=== PATIENT | male | born 1950 | race Caucasian/White ===

== ENCOUNTER 2017-08-05 14:31 | Emergency (ER) | payer OTHER, SELFPAY ==
[~2017-08-05] VITALS: Ht 175.3 cm; Wt 113.4 kg
[~2017-08-05 14:31] MED LIST: ACET325 PO; ALBU90OI INH; ALUMAG30SU PO; AMLO10 PO; AMLO5 PO; ASPI325 PO; ASPI81CH PO; ASPI81EC PO; Atrovent Inha12.9 GM INH; BLOOD PRESSURE MED; CHOLESTEROL MED; COLCRYS0.6 MG PO; DOXA1; DOXA2 PO; FISH1000 PO; FURO40 PO; HYDACE5 PO; HYDACE5325 PO; HYDMOR2 PO; HYDR1TAB94 PO; IBUP800 PO; INDO50 PO; ISOMON30 PO; KETO10 PO; LISI20; LISI20 PO; LISI5 PO; LOPE2C PO; LOSA25 PO; LOVA40 PO; METO100 PO; METO100ER PO; METO25ER PO; METO50 PO; METR500 PO; NAPR550 PO; Norco 5-325 Ta1 EACH PO; OLME40 PO; OMEG1CAP30 PO; OXYACE5T PO; PANT40 PO; POTCHL10ER PO; PRED10 PO; PROM25 PO; Percocet 5-3251 EACH PO; Prednisone50 MG PO; RANI150 PO; Ranitidine HCl150 M1 PO; SPIHYD PO; TOCO1000 PO; VERA240ERB; Zithromax250 MG PO
[2017-08-05 15:13] LABS: BASOPHILS PERCENT AUTO 0 % (0-2); EOSINOPHILS ABSOLUTE AUTO 0.03 K/mm3 (0.00-0.68); EOSINOPHILS PERCENT AUTO 0 % (0-6); Hematocrit 42.8 % (37.0-53.0); Hemoglobin 13.4 g/dL (13.5-17.5); IMMATURE GRAN ABSOLUTE AUTO 0.04 K/mm3 (0.00-0.10); IMMATURE GRAN PERCENT AUTO 1 % (0-1); LYMPHOCYTES ABSOLUTE AUTO 0.47 K/mm3 (0.84-5.20); LYMPHOCYTES PERCENT AUTO 6 % (21-46); MONOCYTES ABSOLUTE AUTO 0.53 K/mm3 (0.16-1.47); MONOCYTES PERCENT AUTO 7 % (4-13); Mean Corpuscular HGB 30.6 pg (26.0-34.0); Mean Corpuscular HGB Conc 31.3 g/dL (31.5-36.5); Mean Corpuscular Volume 98 fL (80-100); Mean Platelet Volume 8.9 fL (9.1-12.4); NEUTROPHILS ABSOLUTE AUTO 7.09 K/mm3 (1.96-9.15); NEUTROPHILS PERCENT AUTO 87 % (41-73); Platelet Count 193 K/mm3 (150-400); RDW Coefficient Variation 15.8 % (11.7-14.2); RDW Standard Deviation 56.3 fL (35.1-46.3); Red Blood Cell Count 4.38 M/mm3 (4.30-5.90); White Blood Cell Count 8.16 K/mm3 (4.00-11.30)
[2017-08-05 15:39] LABS: Alanine Aminotransfer (ALT/SGP 44 U/L (12-78); Albumin, Blood 2.8 g/dL (3.4-5.0); Albumin/Globulin Ratio 0.8 (0.8-1.8); Alk Phos 74 U/L (50-136); Anion Gap 5 mmol/L (6-16); Aspartate Aminotrans (AST/SGOT 38 U/L (12-37); Bilirubin, Total 0.3 mg/dL (0.1-1.0); Blood Urea Nitrogen 16 mg/dL (8-24); Bun/Creatinine Ratio 16.2 (12.0-20.0); CO2, Blood 34 mmol/L (21-32); Calcium, Blood 8.4 mg/dL (8.5-10.1); Chloride, Blood 97 mmol/L (98-108); Creatinine, Blood 0.99 mg/dL (0.60-1.20); Globulin, Blood 3.6 g/dL (2.2-4.0); Glomerular Filtration Rate >60 (60-); Glucose, Blood 107 mg/dL (70-99); Potassium, Blood 4.3 mmol/L (3.5-5.5); Sodium, Blood 136 mmol/L (136-145); Total Protein, Blood 6.4 g/dL (6.4-8.2); Troponin I 0.017 ng/mL (0.000-0.040)
[2017-08-05] MEDS ORDERED: LEVFLO500 PO (16:05)
[2017-08-05] MEDS ORDERED: ALBU90OI INH (16:05)
== END 2017-08-05 16:15 | disposition home or self-care (01) ==
LOC: ER 14:31
PROVIDERS: Physician Assistant
DX: J44.1 Chronic obstructive pulmonary disease with (acute) exacerbation (principal); I10 Essential (primary) hypertension; E78.00 Pure hypercholesterolemia, unspecified; F17.200 Nicotine dependence, unspecified, uncomplicated; Z88.8 Allergy status to other drugs, medicaments and biological substances; Z79.899 Other long term (current) drug therapy; Z79.82 Long term (current) use of aspirin; Z96.641 Presence of right artificial hip joint
CPT/HCPCS: 71020; 80053; 83880; 84484; 85025; 93005; 93010; 99283

== ENCOUNTER 2017-08-06 12:50 | Inpatient (IN) | payer OTHER, SELFPAY ==
[~2017-08-06] VITALS: Ht 175.3 cm; Wt 116.9 kg
[~2017-08-06 12:50] MED LIST changes: +LEVFLO500 PO
[2017-08-06 13:45] LABS: BASOPHILS ABSOLUTE AUTO 0.01 K/mm3 (0.00-0.23); BASOPHILS PERCENT AUTO 0 % (0-2); EOSINOPHILS ABSOLUTE AUTO 0.04 K/mm3 (0.00-0.68); EOSINOPHILS PERCENT AUTO 1 % (0-6); Hematocrit 42.1 % (37.0-53.0); Hemoglobin 13.3 g/dL (13.5-17.5); IMMATURE GRAN ABSOLUTE AUTO 0.04 K/mm3 (0.00-0.10); IMMATURE GRAN PERCENT AUTO 1 % (0-1); LYMPHOCYTES ABSOLUTE AUTO 0.78 K/mm3 (0.84-5.20); LYMPHOCYTES PERCENT AUTO 12 % (21-46); MONOCYTES ABSOLUTE AUTO 0.51 K/mm3 (0.16-1.47); MONOCYTES PERCENT AUTO 8 % (4-13); Mean Corpuscular HGB Conc 31.6 g/dL (31.5-36.5); Mean Corpuscular Volume 98 fL (80-100); NEUTROPHILS ABSOLUTE AUTO 5.27 K/mm3 (1.96-9.15); NEUTROPHILS PERCENT AUTO 79 % (41-73); Platelet Count 172 K/mm3 (150-400); RDW Coefficient Variation 16.1 % (11.7-14.2); RDW Standard Deviation 57.9 fL (35.1-46.3); Red Blood Cell Count 4.29 M/mm3 (4.30-5.90); White Blood Cell Count 6.65 K/mm3 (4.00-11.30)
[2017-08-06 14:06] LABS: Alanine Aminotransfer (ALT/SGP 38 U/L (12-78); Albumin, Blood 2.7 g/dL (3.4-5.0); Albumin/Globulin Ratio 0.7 (0.8-1.8); Alk Phos 69 U/L (50-136); Anion Gap 4 mmol/L (6-16); Aspartate Aminotrans (AST/SGOT 34 U/L (12-37); Bilirubin, Total 0.2 mg/dL (0.1-1.0); Blood Urea Nitrogen 10 mg/dL (8-24); Bun/Creatinine Ratio 12.6 (12.0-20.0); CO2, Blood 34 mmol/L (21-32); Calcium, Blood 8.4 mg/dL (8.5-10.1); Chloride, Blood 97 mmol/L (98-108); Creatinine, Blood 0.79 mg/dL (0.60-1.20); Globulin, Blood 3.8 g/dL (2.2-4.0); Glomerular Filtration Rate >60 (60-); Glucose, Blood 92 mg/dL (70-99); Sodium, Blood 135 mmol/L (136-145); Total Protein, Blood 6.5 g/dL (6.4-8.2); Troponin I 0.029 ng/mL (0.000-0.040)
[2017-08-07 04:48] LABS: Hematocrit 41.9 % (37.0-53.0); Mean Corpuscular HGB 30.3 pg (26.0-34.0); Mean Corpuscular Volume 98 fL (80-100); Mean Platelet Volume 9.4 fL (9.1-12.4); Platelet Count 178 K/mm3 (150-400); RDW Coefficient Variation 16.2 % (11.7-14.2); RDW Standard Deviation 57.5 fL (35.1-46.3); Red Blood Cell Count 4.29 M/mm3 (4.30-5.90); White Blood Cell Count 6.67 K/mm3 (4.00-11.30)
[2017-08-07 05:15] LABS: Alanine Aminotransfer (ALT/SGP 39 U/L (12-78); Albumin, Blood 2.7 g/dL (3.4-5.0); Albumin/Globulin Ratio 0.7 (0.8-1.8); Alk Phos 75 U/L (50-136); Anion Gap 7 mmol/L (6-16); Aspartate Aminotrans (AST/SGOT 29 U/L (12-37); Bilirubin, Total 0.2 mg/dL (0.1-1.0); Blood Urea Nitrogen 18 mg/dL (8-24); CO2, Blood 31 mmol/L (21-32); Calcium, Blood 8.3 mg/dL (8.5-10.1); Chloride, Blood 98 mmol/L (98-108); Globulin, Blood 3.9 g/dL (2.2-4.0); Glomerular Filtration Rate >60 (60-); Glucose, Blood 135 mg/dL (70-99); Potassium, Blood 4.2 mmol/L (3.5-5.5); Sodium, Blood 136 mmol/L (136-145); Total Protein, Blood 6.6 g/dL (6.4-8.2)
[2017-08-07 05:20] LABS: BAND PERCENT MAN 12 % (0-8); BASOPHILS PERCENT MAN 0 % (0-2); EOSINOPHILS PERCENT MAN 0 % (0-6); LYMPHOCYTES ABSOLUTE MAN 0.13 K/mm3 (0.84-5.20); LYMPHOCYTES PERCENT MAN 2 % (21-46); MONOCYTES ABSOLUTE MAN 0.13 K/mm3 (0.16-1.47); MONOCYTES PERCENT MAN 2 % (4-13); SEG NEUTROPHILS PERCENT MAN 84 % (41-73); TOTAL CELLS COUNTED 100
[2017-08-09 05:07] LABS: Hematocrit 42.4 % (37.0-53.0); Hemoglobin 13.2 g/dL (13.5-17.5); Mean Corpuscular HGB 30.6 pg (26.0-34.0); Mean Corpuscular HGB Conc 31.1 g/dL (31.5-36.5); Mean Corpuscular Volume 98 fL (80-100); Mean Platelet Volume 9.3 fL (9.1-12.4); Platelet Count 208 K/mm3 (150-400); RDW Standard Deviation 57.3 fL (35.1-46.3); Red Blood Cell Count 4.32 M/mm3 (4.30-5.90); White Blood Cell Count 12.02 K/mm3 (4.00-11.30)
[2017-08-09 05:26] LABS: Anion Gap 8 mmol/L (6-16); Blood Urea Nitrogen 16 mg/dL (8-24); Bun/Creatinine Ratio 19.3 (12.0-20.0); CO2, Blood 33 mmol/L (21-32); Calcium, Blood 8.4 mg/dL (8.5-10.1); Chloride, Blood 96 mmol/L (98-108); Creatinine, Blood 0.83 mg/dL (0.60-1.20); Glomerular Filtration Rate >60 (60-); Glucose, Blood 137 mg/dL (70-99); Sodium, Blood 137 mmol/L (136-145)
[2017-08-09] MEDS ORDERED: ASPI81CH PO (15:00)
[2017-08-09] MEDS ORDERED: BUDE.5 INH (15:00)
[2017-08-09] MEDS ORDERED: ALBU3IS INH (15:01)
[2017-08-09] MEDS ORDERED: DOXY100 PO (15:02)
[2017-08-09] MEDS ORDERED: FURO40 PO (15:03)
[2017-08-09] MEDS ORDERED: PRED20 PO (15:03)
[2017-08-09] MEDS ORDERED: SPIR25 PO (15:03)
== END 2017-08-09 17:20 | disposition home health service (06) | DRG 189 ==
LOC: ER 12:50 → MEDS 15:22 → ENPENDDIS 08-09 14:40 → MEDS 08-09 17:20
PROVIDERS: Internal Medicine
DX: J96.01 Acute respiratory failure with hypoxia (principal); J44.0 Chronic obstructive pulmonary disease with (acute) lower respiratory infection; G47.33 Obstructive sleep apnea (adult) (pediatric); I10 Essential (primary) hypertension; J20.9 Acute bronchitis, unspecified; F17.200 Nicotine dependence, unspecified, uncomplicated; E78.5 Hyperlipidemia, unspecified; Z88.8 Allergy status to other drugs, medicaments and biological substances; Z79.82 Long term (current) use of aspirin; Z79.899 Other long term (current) drug therapy; Z71.6 Tobacco abuse counseling
CPT/HCPCS: 36415; 71020; 80048; 80053; 83880; 84484; 85025; 85027; 93005; 93010; 94010; 94640; 94644; 94664; 94667; 94760; 94761; 96361; 96365; 96375; 98960; 99285; 99407; J0696; J1650; J1940; J2920; J2930; J7030

== ENCOUNTER 2017-08-19 10:53 | Inpatient (IN) | payer OTHER, SELFPAY ==
[~2017-08-19] VITALS: Ht 175.3 cm; Wt 118.9 kg
[~2017-08-19 10:53] MED LIST changes: +ALBU3IS INH; +BUDE.5 INH; +DOXY100 PO; +PRED20 PO; +SPIR25 PO
[2017-08-19 13:01] LABS: BASOPHILS ABSOLUTE AUTO 0.01 K/mm3 (0.00-0.23); BASOPHILS PERCENT AUTO 0 % (0-2); EOSINOPHILS ABSOLUTE AUTO 0.06 K/mm3 (0.00-0.68); EOSINOPHILS PERCENT AUTO 1 % (0-6); Hematocrit 42.6 % (37.0-53.0); Hemoglobin 13.5 g/dL (13.5-17.5); IMMATURE GRAN ABSOLUTE AUTO 0.08 K/mm3 (0.00-0.10); IMMATURE GRAN PERCENT AUTO 1 % (0-1); LYMPHOCYTES ABSOLUTE AUTO 1.52 K/mm3 (0.84-5.20); LYMPHOCYTES PERCENT AUTO 14 % (21-46); MONOCYTES ABSOLUTE AUTO 0.69 K/mm3 (0.16-1.47); MONOCYTES PERCENT AUTO 6 % (4-13); Mean Corpuscular HGB 30.5 pg (26.0-34.0); Mean Corpuscular HGB Conc 31.7 g/dL (31.5-36.5); Mean Corpuscular Volume 96 fL (80-100); Mean Platelet Volume 9.4 fL (9.1-12.4); NEUTROPHILS ABSOLUTE AUTO 8.91 K/mm3 (1.96-9.15); NEUTROPHILS PERCENT AUTO 79 % (41-73); Platelet Count 223 K/mm3 (150-400); RDW Coefficient Variation 15.8 % (11.7-14.2); RDW Standard Deviation 55.3 fL (35.1-46.3); Red Blood Cell Count 4.42 M/mm3 (4.30-5.90); White Blood Cell Count 11.27 K/mm3 (4.00-11.30)
[2017-08-19 13:19] LABS: Alanine Aminotransfer (ALT/SGP 61 U/L (12-78); Albumin, Blood 2.9 g/dL (3.4-5.0); Albumin/Globulin Ratio 0.8 (0.8-1.8); Alk Phos 83 U/L (50-136); Anion Gap 9 mmol/L (6-16); Aspartate Aminotrans (AST/SGOT 76 U/L (12-37); Bilirubin, Total 0.6 mg/dL (0.1-1.0); Blood Urea Nitrogen 15 mg/dL (8-24); Bun/Creatinine Ratio 16.3 (12.0-20.0); CO2, Blood 31 mmol/L (21-32); Calcium, Blood 8.6 mg/dL (8.5-10.1); Chloride, Blood 86 mmol/L (98-108); Creatinine, Blood 0.92 mg/dL (0.60-1.20); Globulin, Blood 3.7 g/dL (2.2-4.0); Glomerular Filtration Rate >60 (60-); Glucose, Blood 88 mg/dL (70-99); Sodium, Blood 126 mmol/L (136-145); Total Protein, Blood 6.6 g/dL (6.4-8.2); Troponin I <0.015 ng/mL (0.000-0.040)
[2017-08-19 14:05] LABS: PO2 Arterial 58.9 mmHg (80-100); pH Blood Arterial 7.39 (7.35-7.45)
[2017-08-19 21:43] LABS: CPK Creatine Kinase 401 U/L (39-308); Creatine Kinase MB 10.9 ng/mL (0.0-3.6); Creatine Kinase MB Index 2.7 (0.0-4.0); Troponin I <0.015 ng/mL (0.000-0.040)
[2017-08-20 05:53] LABS: Hematocrit 39.8 % (37.0-53.0); Hemoglobin 12.5 g/dL (13.5-17.5); Mean Corpuscular HGB 30.6 pg (26.0-34.0); Mean Corpuscular HGB Conc 31.4 g/dL (31.5-36.5); Mean Corpuscular Volume 97 fL (80-100); Mean Platelet Volume 9.4 fL (9.1-12.4); Platelet Count 242 K/mm3 (150-400); RDW Coefficient Variation 16.3 % (11.7-14.2); RDW Standard Deviation 57.5 fL (35.1-46.3); Red Blood Cell Count 4.09 M/mm3 (4.30-5.90); White Blood Cell Count 10.13 K/mm3 (4.00-11.30)
[2017-08-20 06:27] LABS: Albumin, Blood 2.7 g/dL (3.4-5.0); Anion Gap 8 mmol/L (6-16); Blood Urea Nitrogen 20 mg/dL (8-24); Bun/Creatinine Ratio 19.8 (12.0-20.0); CO2, Blood 32 mmol/L (21-32); CPK Creatine Kinase 347 U/L (39-308); Calcium, Blood 8.3 mg/dL (8.5-10.1); Chloride, Blood 91 mmol/L (98-108); Creatine Kinase MB 9.1 ng/mL (0.0-3.6); Creatine Kinase MB Index 2.6 (0.0-4.0); Creatinine, Blood 1.01 mg/dL (0.60-1.20); Glomerular Filtration Rate >60 (60-); Glucose, Blood 145 mg/dL (70-99); Magnesium, Blood 2.2 mg/dL (1.6-2.4); Phosphorus, Blood 3.7 mg/dL (2.5-4.9); Potassium, Blood 4.5 mmol/L (3.5-5.5); Sodium, Blood 131 mmol/L (136-145); Troponin I <0.015 ng/mL (0.000-0.040)
[2017-08-21 04:51] LABS: Anion Gap 6 mmol/L (6-16); Blood Urea Nitrogen 29 mg/dL (8-24); Bun/Creatinine Ratio 24.2 (12.0-20.0); CO2, Blood 32 mmol/L (21-32); Calcium, Blood 8.1 mg/dL (8.5-10.1); Chloride, Blood 92 mmol/L (98-108); Glomerular Filtration Rate >60 (60-); Glucose, Blood 118 mg/dL (70-99); Magnesium, Blood 2.1 mg/dL (1.6-2.4); Potassium, Blood 4.8 mmol/L (3.5-5.5); Sodium, Blood 130 mmol/L (136-145)
== END 2017-08-21 18:00 | disposition left against medical advice (07) | DRG 291 ==
LOC: ER 10:53 → ERHOLD 16:56 → PCU 20:38
PROVIDERS: Emergency Medicine; Hospitalist; Internal Medicine; Physician Assistant
DX: I11.0 Hypertensive heart disease with heart failure (principal); J96.01 Acute respiratory failure with hypoxia; I47.2 Ventricular tachycardia; J44.1 Chronic obstructive pulmonary disease with (acute) exacerbation; J44.0 Chronic obstructive pulmonary disease with (acute) lower respiratory infection; E87.1 Hypo-osmolality and hyponatremia; J20.9 Acute bronchitis, unspecified; I50.31 Acute diastolic (congestive) heart failure; G47.33 Obstructive sleep apnea (adult) (pediatric); Z96.641 Presence of right artificial hip joint; F17.210 Nicotine dependence, cigarettes, uncomplicated; E78.5 Hyperlipidemia, unspecified; Z99.2 Dependence on renal dialysis; Z79.82 Long term (current) use of aspirin
CPT/HCPCS: 36415; 36600; 71045; 71046; 71260; 80048; 80053; 80069; 82550; 82553; 82803; 83735; 83880; 84443; 84484; 85025; 85027; 93005; 93010; 93306; 94640; 94644; 94660; 94760; 94762; 96361; 96374; 96375; 99285; J0282; J1650; J1940; J1956; J2920; J2930; J7030; Q9967

== ENCOUNTER 2017-09-02 09:32 | Inpatient (IN) | payer OTHER, SELFPAY ==
[~2017-09-02] VITALS: Ht 175.3 cm; Wt 103.2 kg
[2017-09-02 10:42] LABS: BASOPHILS ABSOLUTE AUTO 0.02 K/mm3 (0.00-0.23); BASOPHILS PERCENT AUTO 0 % (0-2); EOSINOPHILS ABSOLUTE AUTO 0.19 K/mm3 (0.00-0.68); EOSINOPHILS PERCENT AUTO 3 % (0-6); Hematocrit 36.4 % (37.0-53.0); Hemoglobin 11.4 g/dL (13.5-17.5); IMMATURE GRAN ABSOLUTE AUTO 0.05 K/mm3 (0.00-0.10); IMMATURE GRAN PERCENT AUTO 1 % (0-1); LYMPHOCYTES ABSOLUTE AUTO 1.09 K/mm3 (0.84-5.20); LYMPHOCYTES PERCENT AUTO 15 % (21-46); MONOCYTES PERCENT AUTO 7 % (4-13); Mean Corpuscular HGB 30.6 pg (26.0-34.0); Mean Corpuscular HGB Conc 31.3 g/dL (31.5-36.5); Mean Corpuscular Volume 98 fL (80-100); Mean Platelet Volume 9.3 fL (9.1-12.4); NEUTROPHILS ABSOLUTE AUTO 5.44 K/mm3 (1.96-9.15); NEUTROPHILS PERCENT AUTO 75 % (41-73); Platelet Count 219 K/mm3 (150-400); RDW Coefficient Variation 16.2 % (11.7-14.2); RDW Standard Deviation 58.4 fL (35.1-46.3); Red Blood Cell Count 3.72 M/mm3 (4.30-5.90); White Blood Cell Count 7.29 K/mm3 (4.00-11.30)
[2017-09-02 11:08] LABS: Alanine Aminotransfer (ALT/SGP 25 U/L (12-78); Albumin, Blood 2.4 g/dL (3.4-5.0); Albumin/Globulin Ratio 0.6 (0.8-1.8); Alk Phos 86 U/L (50-136); Anion Gap 8 mmol/L (6-16); Aspartate Aminotrans (AST/SGOT 21 U/L (12-37); Bilirubin, Total 0.3 mg/dL (0.1-1.0); Blood Urea Nitrogen 16 mg/dL (8-24); Bun/Creatinine Ratio 12.4 (12.0-20.0); CO2, Blood 37 mmol/L (21-32); Calcium, Blood 8.7 mg/dL (8.5-10.1); Chloride, Blood 90 mmol/L (98-108); Creatinine, Blood 1.29 mg/dL (0.60-1.20); Glomerular Filtration Rate 59 (60-); Glucose, Blood 114 mg/dL (70-99); Potassium, Blood 3.8 mmol/L (3.5-5.5); Sodium, Blood 135 mmol/L (136-145); Total Protein, Blood 6.4 g/dL (6.4-8.2); Troponin I <0.015 ng/mL (0.000-0.040)
[2017-09-02] MEDS ORDERED: BUME2 PO (15:08)
[2017-09-03 06:08] LABS: BASOPHILS ABSOLUTE AUTO 0.02 K/mm3 (0.00-0.23); BASOPHILS PERCENT AUTO 0 % (0-2); EOSINOPHILS ABSOLUTE AUTO 0.19 K/mm3 (0.00-0.68); EOSINOPHILS PERCENT AUTO 4 % (0-6); Hematocrit 35.8 % (37.0-53.0); IMMATURE GRAN ABSOLUTE AUTO 0.04 K/mm3 (0.00-0.10); IMMATURE GRAN PERCENT AUTO 1 % (0-1); LYMPHOCYTES ABSOLUTE AUTO 1.35 K/mm3 (0.84-5.20); LYMPHOCYTES PERCENT AUTO 26 % (21-46); MONOCYTES ABSOLUTE AUTO 0.56 K/mm3 (0.16-1.47); MONOCYTES PERCENT AUTO 11 % (4-13); Mean Corpuscular HGB 30.2 pg (26.0-34.0); Mean Corpuscular HGB Conc 30.7 g/dL (31.5-36.5); Mean Corpuscular Volume 98 fL (80-100); Mean Platelet Volume 9.5 fL (9.1-12.4); NEUTROPHILS ABSOLUTE AUTO 3.11 K/mm3 (1.96-9.15); NEUTROPHILS PERCENT AUTO 59 % (41-73); Platelet Count 240 K/mm3 (150-400); RDW Standard Deviation 58.2 fL (35.1-46.3); Red Blood Cell Count 3.64 M/mm3 (4.30-5.90); White Blood Cell Count 5.27 K/mm3 (4.00-11.30)
[2017-09-03 06:40] LABS: Anion Gap 6 mmol/L (6-16); Blood Urea Nitrogen 15 mg/dL (8-24); Bun/Creatinine Ratio 13.3 (12.0-20.0); CO2, Blood 41 mmol/L (21-32); Calcium, Blood 8.8 mg/dL (8.5-10.1); Chloride, Blood 90 mmol/L (98-108); Creatinine, Blood 1.13 mg/dL (0.60-1.20); Glomerular Filtration Rate >60 (60-); Glucose, Blood 85 mg/dL (70-99); Potassium, Blood 3.2 mmol/L (3.5-5.5); Sodium, Blood 137 mmol/L (136-145)
[2017-09-04 05:41] LABS: BASOPHILS ABSOLUTE AUTO 0.03 K/mm3 (0.00-0.23); BASOPHILS PERCENT AUTO 1 % (0-2); EOSINOPHILS ABSOLUTE AUTO 0.19 K/mm3 (0.00-0.68); EOSINOPHILS PERCENT AUTO 4 % (0-6); Hematocrit 34.9 % (37.0-53.0); Hemoglobin 10.6 g/dL (13.5-17.5); IMMATURE GRAN ABSOLUTE AUTO 0.04 K/mm3 (0.00-0.10); IMMATURE GRAN PERCENT AUTO 1 % (0-1); LYMPHOCYTES ABSOLUTE AUTO 1.34 K/mm3 (0.84-5.20); LYMPHOCYTES PERCENT AUTO 26 % (21-46); MONOCYTES ABSOLUTE AUTO 0.48 K/mm3 (0.16-1.47); MONOCYTES PERCENT AUTO 9 % (4-13); Mean Corpuscular HGB 30.3 pg (26.0-34.0); Mean Corpuscular HGB Conc 30.4 g/dL (31.5-36.5); Mean Corpuscular Volume 100 fL (80-100); Mean Platelet Volume 9.3 fL (9.1-12.4); NEUTROPHILS ABSOLUTE AUTO 3.01 K/mm3 (1.96-9.15); NEUTROPHILS PERCENT AUTO 59 % (41-73); Platelet Count 245 K/mm3 (150-400); RDW Coefficient Variation 16.4 % (11.7-14.2); RDW Standard Deviation 60.6 fL (35.1-46.3); White Blood Cell Count 5.09 K/mm3 (4.00-11.30)
[2017-09-04 06:11] LABS: Anion Gap 5 mmol/L (6-16); Blood Urea Nitrogen 14 mg/dL (8-24); Bun/Creatinine Ratio 12.8 (12.0-20.0); CO2, Blood 42 mmol/L (21-32); Chloride, Blood 91 mmol/L (98-108); Creatinine, Blood 1.09 mg/dL (0.60-1.20); Glomerular Filtration Rate >60 (60-); Glucose, Blood 99 mg/dL (70-99); Magnesium, Blood 1.8 mg/dL (1.6-2.4); Potassium, Blood 3.6 mmol/L (3.5-5.5); Sodium, Blood 138 mmol/L (136-145)
[2017-09-05 05:41] LABS: Anion Gap 5 mmol/L (6-16); Blood Urea Nitrogen 14 mg/dL (8-24); Bun/Creatinine Ratio 14.5 (12.0-20.0); CO2, Blood 40 mmol/L (21-32); Calcium, Blood 9.3 mg/dL (8.5-10.1); Chloride, Blood 91 mmol/L (98-108); Creatinine, Blood 0.96 mg/dL (0.60-1.20); Glomerular Filtration Rate >60 (60-); Glucose, Blood 95 mg/dL (70-99); Potassium, Blood 4.1 mmol/L (3.5-5.5); Sodium, Blood 136 mmol/L (136-145)
[2017-09-07 06:19] LABS: BASOPHILS ABSOLUTE AUTO 0.03 K/mm3 (0.00-0.23); BASOPHILS PERCENT AUTO 1 % (0-2); EOSINOPHILS ABSOLUTE AUTO 0.22 K/mm3 (0.00-0.68); EOSINOPHILS PERCENT AUTO 4 % (0-6); Hematocrit 35.1 % (37.0-53.0); Hemoglobin 10.7 g/dL (13.5-17.5); IMMATURE GRAN ABSOLUTE AUTO 0.03 K/mm3 (0.00-0.10); IMMATURE GRAN PERCENT AUTO 1 % (0-1); LYMPHOCYTES ABSOLUTE AUTO 1.63 K/mm3 (0.84-5.20); LYMPHOCYTES PERCENT AUTO 27 % (21-46); MONOCYTES ABSOLUTE AUTO 0.75 K/mm3 (0.16-1.47); MONOCYTES PERCENT AUTO 12 % (4-13); Mean Corpuscular HGB 30.3 pg (26.0-34.0); Mean Corpuscular HGB Conc 30.5 g/dL (31.5-36.5); Mean Corpuscular Volume 99 fL (80-100); Mean Platelet Volume 9.4 fL (9.1-12.4); NEUTROPHILS ABSOLUTE AUTO 3.37 K/mm3 (1.96-9.15); NEUTROPHILS PERCENT AUTO 56 % (41-73); Platelet Count 269 K/mm3 (150-400); RDW Coefficient Variation 16.3 % (11.7-14.2); RDW Standard Deviation 60.1 fL (35.1-46.3); Red Blood Cell Count 3.53 M/mm3 (4.30-5.90); White Blood Cell Count 6.03 K/mm3 (4.00-11.30)
[2017-09-07 06:41] LABS: Anion Gap 5 mmol/L (6-16); Blood Urea Nitrogen 20 mg/dL (8-24); Bun/Creatinine Ratio 18.7 (12.0-20.0); CO2, Blood 40 mmol/L (21-32); Calcium, Blood 9.1 mg/dL (8.5-10.1); Chloride, Blood 92 mmol/L (98-108); Creatinine, Blood 1.07 mg/dL (0.60-1.20); Glomerular Filtration Rate >60 (60-); Glucose, Blood 101 mg/dL (70-99); Potassium, Blood 3.9 mmol/L (3.5-5.5); Sodium, Blood 137 mmol/L (136-145)
[2017-09-09 10:15] LABS: BASOPHILS ABSOLUTE AUTO 0.04 K/mm3 (0.00-0.23); BASOPHILS PERCENT AUTO 1 % (0-2); EOSINOPHILS PERCENT AUTO 3 % (0-6); Hematocrit 38.7 % (37.0-53.0); Hemoglobin 11.6 g/dL (13.5-17.5); IMMATURE GRAN ABSOLUTE AUTO 0.05 K/mm3 (0.00-0.10); IMMATURE GRAN PERCENT AUTO 1 % (0-1); LYMPHOCYTES ABSOLUTE AUTO 1.92 K/mm3 (0.84-5.20); LYMPHOCYTES PERCENT AUTO 25 % (21-46); MONOCYTES ABSOLUTE AUTO 0.66 K/mm3 (0.16-1.47); MONOCYTES PERCENT AUTO 8 % (4-13); Mean Corpuscular HGB 29.9 pg (26.0-34.0); Mean Corpuscular Volume 100 fL (80-100); NEUTROPHILS ABSOLUTE AUTO 4.96 K/mm3 (1.96-9.15); NEUTROPHILS PERCENT AUTO 63 % (41-73); Platelet Count 335 K/mm3 (150-400); RDW Coefficient Variation 16.3 % (11.7-14.2); RDW Standard Deviation 60.6 fL (35.1-46.3); Red Blood Cell Count 3.88 M/mm3 (4.30-5.90); White Blood Cell Count 7.83 K/mm3 (4.00-11.30)
[2017-09-09 10:47] LABS: Anion Gap 7 mmol/L (6-16); Blood Urea Nitrogen 24 mg/dL (8-24); Bun/Creatinine Ratio 22.4 (12.0-20.0); CO2, Blood 34 mmol/L (21-32); Calcium, Blood 9.3 mg/dL (8.5-10.1); Chloride, Blood 95 mmol/L (98-108); Creatinine, Blood 1.07 mg/dL (0.60-1.20); Glomerular Filtration Rate >60 (60-); Glucose, Blood 106 mg/dL (70-99); Potassium, Blood 4.1 mmol/L (3.5-5.5); Sodium, Blood 136 mmol/L (136-145)
[2017-09-09] MEDS ORDERED: Cephalexin250 MG/5 M PO (12:15)
[2017-09-09] MEDS ORDERED: K-Dur20 MEQ PO (12:15)
[2017-09-09] MEDS ORDERED: TORSE20 PO (12:16)
[2017-09-09] MEDS ORDERED: LOSA50 PO (12:17)
== END 2017-09-09 13:30 | disposition home or self-care (01) | DRG 291 ==
LOC: ER 09:32 → ERHOLD 09:33 → ER 09:33 → MEDS 09:33 → ERHOLD 09:33 → MEDS 15:15 → ERHOLD 15:15 → MEDS 15:16 → ERHOLD 09-03 22:51 → MEDS 09-04 22:51 → ER 09-04 22:51 → MEDS 09-04 22:51 → ERHOLD 09-04 22:51 → MEDS 09-06 21:40
PROVIDERS: Emergency Medicine; Hospitalist; Internal Medicine
PROC: 5A09357 Assistance with Respiratory Ventilation, Less than 24 Consecutive Hours, Continuous Positive Airway Pressure (ICD-10-PCS; principal; 2017-09-02)
PROC: 3E0234Z Introduction of Serum, Toxoid and Vaccine into Muscle, Percutaneous Approach (ICD-10-PCS; 2017-09-02)
DX: I11.0 Hypertensive heart disease with heart failure (principal); J96.21 Acute and chronic respiratory failure with hypoxia; L03.115 Cellulitis of right lower limb; L03.116 Cellulitis of left lower limb; E66.01 Morbid (severe) obesity due to excess calories; J44.9 Chronic obstructive pulmonary disease, unspecified; I50.43 Acute on chronic combined systolic (congestive) and diastolic (congestive) heart failure; G47.33 Obstructive sleep apnea (adult) (pediatric); I89.0 Lymphedema, not elsewhere classified; Z68.39 Body mass index [BMI] 39.0-39.9, adult; E78.5 Hyperlipidemia, unspecified; F17.210 Nicotine dependence, cigarettes, uncomplicated; Z23 Encounter for immunization
CPT/HCPCS: 36415; 71046; 80048; 80053; 83735; 83880; 84145; 84484; 85025; 85379; 93005; 93010; 93970; 94640; 94660; 94760; 94762; 96374; 97110; 97116; 97161; 97530; 99285; G8978; G8979; J0690; J1650; J1940; Q2038

== ENCOUNTER 2017-10-16 00:24 | Observation (INO) | payer OTHER, SELFPAY ==
[~2017-10-16] VITALS: Ht 175.3 cm; Wt 110.0 kg
[~2017-10-16 00:24] MED LIST changes: +BUME2 PO; +Cephalexin250 MG/5 M PO; +K-Dur20 MEQ PO; +LOSA50 PO; +TORSE20 PO
[2017-10-16 01:52] LABS: BASOPHILS ABSOLUTE AUTO 0.03 K/mm3 (0.00-0.23); BASOPHILS PERCENT AUTO 0 % (0-2); EOSINOPHILS ABSOLUTE AUTO 0.09 K/mm3 (0.00-0.68); EOSINOPHILS PERCENT AUTO 1 % (0-6); Hematocrit 36.8 % (37.0-53.0); IMMATURE GRAN ABSOLUTE AUTO 0.04 K/mm3 (0.00-0.10); IMMATURE GRAN PERCENT AUTO 0 % (0-1); LYMPHOCYTES ABSOLUTE AUTO 1.54 K/mm3 (0.84-5.20); LYMPHOCYTES PERCENT AUTO 14 % (21-46); MONOCYTES ABSOLUTE AUTO 0.49 K/mm3 (0.16-1.47); MONOCYTES PERCENT AUTO 5 % (4-13); Mean Corpuscular HGB 30.1 pg (26.0-34.0); Mean Corpuscular HGB Conc 32.6 g/dL (31.5-36.5); Mean Corpuscular Volume 92 fL (80-100); Mean Platelet Volume 8.8 fL (9.1-12.4); NEUTROPHILS ABSOLUTE AUTO 8.66 K/mm3 (1.96-9.15); NEUTROPHILS PERCENT AUTO 80 % (41-73); Platelet Count 224 K/mm3 (150-400); RDW Coefficient Variation 14.8 % (11.7-14.2); Red Blood Cell Count 3.99 M/mm3 (4.30-5.90); White Blood Cell Count 10.85 K/mm3 (4.00-11.30)
[2017-10-16 03:12] LABS: Alanine Aminotransfer (ALT/SGP 33 U/L (12-78); Albumin, Blood 3.5 g/dL (3.4-5.0); Albumin/Globulin Ratio 0.9 (0.8-1.8); Alk Phos 88 U/L (50-136); Anion Gap 8 mmol/L (6-16); Aspartate Aminotrans (AST/SGOT 26 U/L (12-37); Bilirubin, Total 0.4 mg/dL (0.1-1.0); Blood Urea Nitrogen 21 mg/dL (8-24); CO2, Blood 27 mmol/L (21-32); Calcium, Blood 9.2 mg/dL (8.5-10.1); Chloride, Blood 89 mmol/L (98-108); Creatinine, Blood 1.05 mg/dL (0.60-1.20); Globulin, Blood 3.8 g/dL (2.2-4.0); Glomerular Filtration Rate >60 (60-); Glucose, Blood 104 mg/dL (70-99); Potassium, Blood 4.8 mmol/L (3.5-5.5); Sodium, Blood 124 mmol/L (136-145); Total Protein, Blood 7.3 g/dL (6.4-8.2)
[2017-10-16 04:51] LABS: Source, Urine Clean Catch
[2017-10-16 04:52] LABS: Bilirubin, Urine Neg (Neg); Blood, Urine Neg (Neg); Glucose Qualitative, Urine Neg (Neg); Ketones, Urine Neg (Neg); Leukocyte Esterase, Urine Neg (Neg); Nitrite, Urine Neg (Neg); Protein, Urine 3+ (Neg); Urobilinogen, Urine NORM (Normal)
[2017-10-16 04:57] LABS: Appearance, Urine Clear (Clear); Color, Urine Yellow (P-Yellow)
[2017-10-16 05:01] LABS: Bacteria Not Seen /hpf; Red Blood Cells, Urine Not Seen /hpf (0-2); Squamous Epithelial Cells Few /hpf (Few); White Blood Cells, Urine Not Seen /hpf (0-5)
[2017-10-17 04:06] LABS: Hematocrit 35.3 % (37.0-53.0); Mean Corpuscular HGB 30.1 pg (26.0-34.0); Mean Corpuscular HGB Conc 31.2 g/dL (31.5-36.5); Mean Platelet Volume 8.9 fL (9.1-12.4); Platelet Count 201 K/mm3 (150-400); RDW Coefficient Variation 14.7 % (11.7-14.2); RDW Standard Deviation 52.4 fL (35.1-46.3); Red Blood Cell Count 3.65 M/mm3 (4.30-5.90)
[2017-10-17 04:10] LABS: Mean Corpuscular Volume 97 fL (80-100)
[2017-10-17 04:29] LABS: Anion Gap 5 mmol/L (6-16); Blood Urea Nitrogen 15 mg/dL (8-24); CO2, Blood 28 mmol/L (21-32); Calcium, Blood 9.1 mg/dL (8.5-10.1); Chloride, Blood 94 mmol/L (98-108); Creatinine, Blood 0.75 mg/dL (0.60-1.20); Glomerular Filtration Rate >60 (60-); Glucose, Blood 103 mg/dL (70-99); Potassium, Blood 5.4 mmol/L (3.5-5.5); Sodium, Blood 127 mmol/L (136-145)
[2017-10-17] MEDS ORDERED: ROXICODONE5 MG PO (14:04)
== END 2017-10-17 14:15 | disposition home or self-care (01) ==
LOC: ER 00:24 → SURS 00:25 → ER 05:33 → SURS 05:55 → ICUW 11:17 → SURS 11:17 → ICUW 11:17 → SURS 10-17 09:33
PROVIDERS: Emergency Medicine; Surgery
PROC: 0DTJ4ZZ Resection of Appendix, Percutaneous Endoscopic Approach (ICD-10-PCS; principal; 2017-10-16 10:00)
DX: K35.80 Unspecified acute appendicitis (principal); I11.0 Hypertensive heart disease with heart failure; I50.9 Heart failure, unspecified; E87.1 Hypo-osmolality and hyponatremia; E87.6 Hypokalemia; K21.9 Gastro-esophageal reflux disease without esophagitis; J44.9 Chronic obstructive pulmonary disease, unspecified; G47.33 Obstructive sleep apnea (adult) (pediatric); E78.5 Hyperlipidemia, unspecified; I49.3 Ventricular premature depolarization; M10.9 Gout, unspecified; E66.01 Morbid (severe) obesity due to excess calories; F17.210 Nicotine dependence, cigarettes, uncomplicated; Z96.641 Presence of right artificial hip joint; Z79.82 Long term (current) use of aspirin; Z79.899 Other long term (current) drug therapy; Z88.8 Allergy status to other drugs, medicaments and biological substances; Z68.43 Body mass index [BMI] 50.0-59.9, adult; Z98.890 Other specified postprocedural states
CPT/HCPCS: 36415; 74176; 80048; 80053; 81001; 83690; 85025; 85027; 88304; 93005; 93010; 94640; 94760; 96361; 96374; 96375; 96376; 99285; G0378; J0295; J0360; J1100; J1170; J1650; J1885; J2405; J2550; J2710; J3010; J7030

== ENCOUNTER 2018-10-19 09:33 | Inpatient (IN) | payer OTHER ==
[~2018-10-19] VITALS: Ht 175.3 cm; Wt 116.5 kg
[~2018-10-19 09:33] MED LIST changes: -ALBU3IS INH; +ALBU3IS NEB; +Aspirin EC81 MG PO; -LOSA50 PO; +ROXICODONE5 MG PO
[2018-10-19 10:36] LABS: BASOPHILS ABSOLUTE AUTO 0.05 K/mm3 (0.00-0.23); BASOPHILS PERCENT AUTO 1 % (0-2); EOSINOPHILS ABSOLUTE AUTO 0.87 K/mm3 (0.00-0.68); EOSINOPHILS PERCENT AUTO 9 % (0-6); Hematocrit 44.6 % (37.0-53.0); Hemoglobin 14.1 g/dL (13.5-17.5); IMMATURE GRAN ABSOLUTE AUTO 0.04 K/mm3 (0.00-0.10); IMMATURE GRAN PERCENT AUTO 0 % (0-1); LYMPHOCYTES ABSOLUTE AUTO 2.57 K/mm3 (0.84-5.20); LYMPHOCYTES PERCENT AUTO 27 % (21-46); MONOCYTES ABSOLUTE AUTO 0.61 K/mm3 (0.16-1.47); MONOCYTES PERCENT AUTO 7 % (4-13); Mean Corpuscular HGB 32.2 pg (26.0-34.0); Mean Corpuscular HGB Conc 31.6 g/dL (31.5-36.5); Mean Corpuscular Volume 102 fL (80-100); Mean Platelet Volume 9.3 fL (9.1-12.4); NEUTROPHILS ABSOLUTE AUTO 5.29 K/mm3 (1.96-9.15); NEUTROPHILS PERCENT AUTO 56 % (41-73); Platelet Count 188 K/mm3 (150-400); RDW Coefficient Variation 13.9 % (11.7-14.2); RDW Standard Deviation 52.5 fL (35.1-46.3); Red Blood Cell Count 4.38 M/mm3 (4.30-5.90); White Blood Cell Count 9.43 K/mm3 (4.00-11.30)
[2018-10-19 10:46] LABS: Base Excess Venous 10.2 mmol/L; Bicarbonate Venous 30.2 mmol/L (24.0-30.0); PO2 Venous 33.5 mmHg (38-42); pH Blood Venous 7.33 (7.34-7.37)
[2018-10-19 10:51] LABS: Troponin I 0.015 ng/mL (0.000-0.040)
[2018-10-19 10:53] LABS: Albumin, Blood 3.4 g/dL (3.4-5.0); Albumin/Globulin Ratio 0.9 (0.8-1.8); Bilirubin, Total 0.5 mg/dL (0.1-1.0); Bun/Creatinine Ratio 13.8 (12.0-20.0); Calcium, Blood 8.5 mg/dL (8.5-10.1); Creatinine, Blood 1.38 mg/dL (0.60-1.20); Globulin, Blood 3.8 g/dL (2.2-4.0); Potassium, Blood 4.1 mmol/L (3.5-5.5); Total Protein, Blood 7.2 g/dL (6.4-8.2)
[2018-10-19] MEDS ORDERED: Norco 10-325 T1 EACH PO (12:30)
[2018-10-19] MEDS ORDERED: LOSARTAN POTAS100 MG PO (12:32)
[2018-10-19 12:34] LABS: Influenza A Negative (NEGATIVE); Influenza B Negative (NEGATIVE)
[2018-10-19] MEDS ORDERED: ALLO100 PO (12:47)
[2018-10-19] MEDS ORDERED: FLUT1DIS8 INH (12:48)
[2018-10-19] MEDS ORDERED: POTCHL20ER PO (13:28)
--- NOTE | 2018-10-19 19:35 | NUR ---
ASSUMED CARE Assumed care of pt upon arrival to unit at 1304. Pt transferred from ED [facility] to PCU bed using slider sheet and four staff. Pt tolerated transfer well. Pt on NC during transfer and then promptly placed back on BiPAP. Admission completed using home med list that pt keeps in wallet, and verbal answers from pt and his daughter. Pt's daughter departed from room about one hour after arrival and pt has not had any visitors since. Pt was initially reluctant to allow staff in room while he voided in urinal. Pt was educated to fall prevention given his current condition and dyspnea with minimal exertion. Pt voids into urinal while sitting up on side of bed and has not gotten out of bed without assitance from staff. Pt has taken two breaks from BiPAP to eat. Pt has good appetite. Pt can only tolerate about 30 minutes maximum off BiPAP before he becomes tachypnic and can only speak in one-word sentences. Pt tolerates BiPAP well and verbalizes understanding of importance for wearing it. Pt offered flu vaccine. He initially declined and his daughter stated "He doesn't do those." Pt encouraged to get flu vaccine given deteriorated respiratory status. Pt verbalized understanding and agreed to receive flu vaccine. When not on BiPAP, pt maintains O2 sats 90% or greater with 6 LPM NC. He states his home O2 use is 3 LPM NC. Bed maintained in lowest position. Call light in reach. Pt denies need at this time. Report given to Lisy CORONEL.
--- NOTE | 2018-10-19 21:56 | NUR ---
LACTIC OF 3.2: NURSE PRACTIONER DALILA NOTIFIED OF CRITICAL LACTIC THAT IS TRENDING UP. PATIENT CONTINUES TO RECEIVE THE 1L OF NORMAL SALINE AT 200 MLS/HR DUE PATIENT'S HX OF CHF. DALILA STATED HE WOULD REVIEW THE PATIENT'S CHART AND ENTER FURTHER ORDERS IF NEEDED.
[2018-10-19 22:58] LABS: Anion Gap 8 mmol/L (6-16); Blood Urea Nitrogen 25 mg/dL (8-24); CO2, Blood 31 mmol/L (21-32); Chloride, Blood 90 mmol/L (98-108); Creatinine, Blood 1.19 mg/dL (0.60-1.20); Glomerular Filtration Rate >60 (60-); Glucose, Blood 248 mg/dL (70-99); Sodium, Blood 129 mmol/L (136-145)
[2018-10-20 04:31] LABS: BASOPHILS ABSOLUTE AUTO 0.02 K/mm3 (0.00-0.23); BASOPHILS PERCENT AUTO 0 % (0-2); EOSINOPHILS ABSOLUTE AUTO 0.03 K/mm3 (0.00-0.68); EOSINOPHILS PERCENT AUTO 0 % (0-6); Hematocrit 41.9 % (37.0-53.0); Hemoglobin 13.3 g/dL (13.5-17.5); IMMATURE GRAN ABSOLUTE AUTO 0.05 K/mm3 (0.00-0.10); IMMATURE GRAN PERCENT AUTO 0 % (0-1); LYMPHOCYTES ABSOLUTE AUTO 0.69 K/mm3 (0.84-5.20); LYMPHOCYTES PERCENT AUTO 6 % (21-46); MONOCYTES ABSOLUTE AUTO 0.17 K/mm3 (0.16-1.47); MONOCYTES PERCENT AUTO 1 % (4-13); Mean Corpuscular HGB 32.5 pg (26.0-34.0); Mean Corpuscular HGB Conc 31.7 g/dL (31.5-36.5); Mean Corpuscular Volume 102 fL (80-100); Mean Platelet Volume 9.4 fL (9.1-12.4); NEUTROPHILS ABSOLUTE AUTO 11.11 K/mm3 (1.96-9.15); NEUTROPHILS PERCENT AUTO 92 % (41-73); Platelet Count 188 K/mm3 (150-400); RDW Coefficient Variation 13.4 % (11.7-14.2); RDW Standard Deviation 51.8 fL (35.1-46.3); Red Blood Cell Count 4.09 M/mm3 (4.30-5.90); White Blood Cell Count 12.07 K/mm3 (4.00-11.30)
[2018-10-20 04:46] LABS: Anion Gap 8 mmol/L (6-16); Blood Urea Nitrogen 26 mg/dL (8-24); Bun/Creatinine Ratio 23.9 (12.0-20.0); CO2, Blood 29 mmol/L (21-32); Calcium, Blood 8.2 mg/dL (8.5-10.1); Chloride, Blood 91 mmol/L (98-108); Creatinine, Blood 1.09 mg/dL (0.60-1.20); Glomerular Filtration Rate >60 (60-); Glucose, Blood 142 mg/dL (70-99); Potassium, Blood 5.7 mmol/L (3.5-5.5); Sodium, Blood 128 mmol/L (136-145)
--- NOTE | 2018-10-20 05:54 | NUR ---
UPDATE PATIENT IS REPORTING CHEST PAIN, "LIKE WHAT I HAD BEFORE I CALLED THE AMBULANCE WHEN I CAME IN YESTERDAY" THAT HE RATES A 02/14. DR RAMIREZ NOTIFIED AND GAVE AN ORDER FOR IV PAIN MEDICATIONS. NO FURTHER ORDERS AT THIS TIME. DR RAMIREZ ALSO NOTIFIED THAT PATIENT'S POTASSIUM IS 5.7 THIS AM. NO ORDERS GIVEN.
--- NOTE | 2018-10-20 07:46 | NUR ---
SHIFT SUMMARY PATIENT PLEASENT AND COOPERATIVE THROUGHOUT THE NIGHT. PATIENT HAS BEEN ON AND OFF THE BIPAP THROUGHOUT THE NIGHT. PATIENT WAS OFF FOR SEVERAL HOURS AT ONE TIME LAST NIGHT AND APPEARED TO TOLERATE IT WELL WHILE SITTING AT THE EDGE OF THE BED. PATIENT ON 6L WHEN OFF BIPAP AT THIS TIME. PATIENT STILL BECOMES VERY SOB WITH ANY EXERTION. AT ONE POINT PATIENT STOOD AT THE EDGE OF THE BED WITH STAFF AND BECAME VERY SOB, PATIENT REQUIRED THE BIPAP FOR RECOVERY. VITAL SIGNS CHARTED. DR RAMIREZ AWARE OF PATIENT'S ELEVATED BLOOD PRESSURE. NO FURTHER COMPLAINTS OF CHEST PAIN AT THIS TIME. CONTINUOUS BIOX IN PLACE. REPORT GIVEN TO ONCMANN CORONEL.
--- NOTE | 2018-10-20 17:23 | NUR ---
SHIFT SUMMARY Assumed care of pt at 0700. Report received from Lisy CORONEL. Pt on 6 LPM NC for entire shift. Pt awake for all of morning and early afternoon. Pt sat in chair for breakfast. He became short of breath with activity but did not require BiPAP. This afternoon, pt requested BiPAP. He stated that respiratory therapist had adjusted settings on the BiPAP and pt stated increased comfort when he wore the BiPAP, stating "now it breathes when I breathe." Pt currently resting in bed with BiPAP on. Will continue to closely monitor until care handoff and bedside report with oncoming RN.
--- NOTE | 2018-10-20 20:00 | NUR ---
ASSUMED CARE REPORT RECIEVED. PT SITTING UP AT SIDE OF BED, RESTING ARMS ON BEDSIDE TABLE. PT IS ALERT AND ORIENTED. PT STATES HE IS SOB AT THIS TIME. PT ON 6L O2 NC, SPO2 >90%. PT STARTED ON BIPAP 10/5, FIO2 35%. PT REPORTS LESS SOB AFTER BEING PLACED ON BIPAP. VITAL SIGNS STABLE. IV SALINE LOCKED. PT COMPLAINS OF PAIN IN BLE. PT MED PER EMAR. PT VOIDING IN URINAL WELL. PT REPOSITIONS SELF IN BED INDEPENDENTLY. WILL CONTINUE TO MONITOR.
[2018-10-21 04:18] LABS: Anion Gap 7 mmol/L (6-16); Blood Urea Nitrogen 28 mg/dL (8-24); Bun/Creatinine Ratio 31.9 (12.0-20.0); CO2, Blood 31 mmol/L (21-32); Calcium, Blood 8.4 mg/dL (8.5-10.1); Chloride, Blood 93 mmol/L (98-108); Creatinine, Blood 0.88 mg/dL (0.60-1.20); Glomerular Filtration Rate >60 (60-); Glucose, Blood 224 mg/dL (70-99); Potassium, Blood 4.4 mmol/L (3.5-5.5); Sodium, Blood 131 mmol/L (136-145)
--- NOTE | 2018-10-21 05:47 | NUR ---
SHIFT SUMMARY NO ACUTE CHANGES THIS SHIFT. PT AWAKE, ALERT, AND ORIENTED THROUGHOUT THE NIGHT. PT WITH SHORT PERIODS OF SLEEP. PT ABLE TO WEAR BIPAP WHEN SLEEPING WELL, OTHERWISE PT REMAINS ON 6L O2 NC. VITAL SIGNS STABLE. PT MED FOR PAIN IN BACK/LEGS PER EMAR. PT HAS REPOSITIONED SELF IN BED INDEPENDENTLY AND IS SITTING UP AT BEDSIDE FREQUENTLY. PT TOLERATING PO INTAKE WELL. PT VOIDING WITH URINAL WELL. IV SALINE LOCKED. WILL CONTINUE TO MONITOR AND REPORT OFF TO ONCOMING RN.
--- NOTE | 2018-10-21 09:10 | NUR ---
BEGINNING OF SHIFT Assumed care at 0700. Report received from Akash CORONEL. Pt on 6 LPM NC. Pt's baseline O2 use is 3 LPM NC. Pt sat on edge of bed to eat breakfast and then requested BiPAP. Continuous oximetry in place. Sinus rhythm with BBB per telemetry. Bed in lowest position. Call light in reach. Pt denies need at this time.
--- NOTE | 2018-10-21 18:15 | NUR ---
SHIFT SUMMARY No acute changes to shift assessment. Pt has been OOB several times this shift. Tolerates activity better than previous day shift. Will continue to monitor until care handoff and bedside report with oncoming RN.
[2018-10-22 05:08] LABS: Anion Gap 10 mmol/L (6-16); Blood Urea Nitrogen 28 mg/dL (8-24); Bun/Creatinine Ratio 33.4 (12.0-20.0); CO2, Blood 31 mmol/L (21-32); Calcium, Blood 8.8 mg/dL (8.5-10.1); Chloride, Blood 90 mmol/L (98-108); Creatinine, Blood 0.84 mg/dL (0.60-1.20); Glomerular Filtration Rate >60 (60-); Glucose, Blood 145 mg/dL (70-99); Potassium, Blood 4.4 mmol/L (3.5-5.5); Sodium, Blood 131 mmol/L (136-145)
--- NOTE | 2018-10-22 06:04 | NUR ---
SHIFT SUMMARY- PT HAS REMAINED AOX4 THROUGHOUT SHIFT. PLEASANT AND COOPERATIVE WITH CARE. PT WITH HYPERTENSIVE EPISODE THIS AM, MEDICATED WITH HYDRALAZINE PER ORDERS WITH SUCCESSFUL DECREASE IN BP. O2 SATS HAVE REMAINED >90% ON 6L VIA HI-FLOW NASAL CANNULA OR BIPAP WITH SETTINGS OF 10/5 35% FIO2. PT WITH TWO EPISODES OF DESATURATION TO 85% THAT INCREASED TO >90% WITHIN ONE MINUTE OF BIPAP PLACEMENT AND REST. NO OTHER CHANGES NOTED FROM INITIAL ASSESSMENT. WILL CONTINUE TO MONITOR AND REPORT TO ONCOMING SHIFT RN. BED IN LOW POSITION, CALL LIGHT IN REACH.
--- NOTE | 2018-10-22 14:33 | NUR ---
NOTE PT AWAKE , ALERT. HE LAID DOWN FOR A NAP AFTER LUNCH. PT WORE HIS CPAP. HE TOOK IT OFF DURING HIS NAP BUT DOESN'T REMEMBER IT. VSS. DRINKING A CUP OF COFFEE. VOIDING PER URINAL. PT HAS DENIED NEED FOR PAIN MEDICATION TODAY. REMINDED HIM TO CALL IF HE NEEDS PAIN CONTROL HELP. FAMILY VISITED EARLIER. CONTINUE POT.
--- NOTE | 2018-10-22 23:30 | NUR ---
AMBULATION PT UP AND AMBULATING AROUND DEPARTMENT WITH STANDBY ASSISTANCE ON 6L VIA HI-FLOW NASAL CANNULA. O2 SATS OF 89-93%. PT BECAME TACHYPNEIC AND DYSPNEIC ON EXERTION. SOME AUDIBLE WHEEZES NOTED DURING AMBULATION. PT REPORTED THAT HE "DIDN'T FEEL TOO BAD". PT AMBULATED APPROXIMATELY 400 FEET. OXYGEN SATURATIONS RECOVERED TO 95% WITHIN 1 MINUTE OF REST. WILL CONTINUE TO MONITOR.
[2018-10-23 04:15] LABS: Anion Gap 8 mmol/L (6-16); Blood Urea Nitrogen 30 mg/dL (8-24); Bun/Creatinine Ratio 36.3 (12.0-20.0); CO2, Blood 32 mmol/L (21-32); Calcium, Blood 8.1 mg/dL (8.5-10.1); Chloride, Blood 91 mmol/L (98-108); Creatinine, Blood 0.83 mg/dL (0.60-1.20); Glomerular Filtration Rate >60 (60-); Glucose, Blood 217 mg/dL (70-99); Potassium, Blood 4.2 mmol/L (3.5-5.5); Sodium, Blood 131 mmol/L (136-145)
--- NOTE | 2018-10-23 06:17 | NUR ---
SHIFT SUMMARY- PT HAS REMAINED AOX4 THROUGHOUT SHIFT. VSS. PLEASANT AND COOPERATIVE WITH CARE. PT AMBULATED TO RESTROOM AND AROUND UNIT WITH STANDBY ASSIST WITHOUT DIFFICULTY. PT DID HAVE EXERTIONAL DYSPNEA, BUT SATS REMAINED >89% WITH 6L O2 DURING ACTIVITY. O2 SATS REMAIN >93% ON 6L VIA NASAL CANNULA WHILE AT REST. PT WORE VISION BIPAP ON CPAP SETTING WHILE SLEEPING LAST NIGHT- BIPAP REMAINED IN PLACE FOR APPROXIMATELY 4 HOURS WHILE RESTING. PT CONTINUES TO NEED ENCOURAGEMENT TO KEEP CPAP IN PLACE WHILE SLEEPING AND WILL REMOVE OXYGEN DELIVERY SYSTEMS IN HIS SLEEP. PT MEDICATED ONCE FOR PAIN THAT DECREASED WITH ORDERED MEDICATIONS AND ENABLED PT TO REST. NO OTHER CHANGES FROM INITIAL ASSESSMENT. WILL CONTINUE TO MONITOR AND REPORT TO ONCOMING SHIFT RN. BED IN LOW POSITION, CALL LIGHT IN REACH.
--- NOTE | 2018-10-23 14:26 | NUR ---
Spiritual care visit conducted. Patient was sitting on the edge of the bed leaning on the table and alert. Patient spoke easily about his life/family history, about his spiritism beliefs and about the frustrations of living with his respitory issues. I listened empathically, explored souces of value and meaning, provided emotional support and provided companionship. Patient responded well to all interventions and welcomed me to come back any time.
--- NOTE | 2018-10-24 04:00 | NUR ---
OUTPATIENT SLEEP STUDY PT EXPRESSING CONCERNS ABOUT OUTPATIENT SLEEP STUDY DUE TO THE FACT THAT HE IS ONLY ABLE TO SLEEP A COUPLE OF HOURS AT A TIME. WORRIES THAT THE TEST WILL END UP BEING INCONCLUSIVE AND HE WILL NOT QUALIFY FOR NEEDED MACHINE.
--- NOTE | 2018-10-24 06:35 | NUR ---
SHIFT SUMMARY- PT HAS REMAINED AOX4 THROUGHOUT SHIFT. PLEASANT AND COOPERATIVE WITH CARE. PT CONTINUES TO AMBULATE INDEPENDENTLY IN ROOM AND WITH STANDBY ASSIST AROUND UNIT. PT MEDICATED ONCE FOR HYPERTENSIVE EPISODE THAT DECREASED WITH ORDERED MEDICATIONS. PT MEDICATED ONCE FOR CHRONIC PAIN TO LEGS AND BACK AND ONCE WITH TYLENOL FOR HEADACHE, BOTH DECREASED WITH ORDERED MEDICATIONS. O2 SATS HAVE REMAINED >90% ON 2L VIA NASAL CANNULA WHILE AT REST OR WITH MINIMAL AMBULATION. PT REQUIRES INCREASE IN O2 DEMAND TO 5L TO MAINTAIN SATS >92% WITH LONG DISTANCE AMBULATION. NO OTHER CHANGES FROM INITIAL ASSESSMENT. WILL CONTINUE TO MONITOR AND REPORT TO ONCOMING SHIFT RN. BED IN LOW POSITION,CALL LIGHT IN REACH.
--- NOTE | 2018-10-24 07:45 | NUR ---
AM Assessment: Pt sitting up at edge of bed to eat breakfast. Denies needs. States that he is feeling much better and that he is wanting to go home. Physician in at Pt's bedside. Plan for Pt to stay one more day. BP slightly elevated, will treat per orders. LS with exp wheezing throughout. HR reg. BT positive. ABd distended and firm. Pt states that he is feeling constipated. Will give stool softeners and laxatives per orders. Pt denies other needs. Call light in reach.
--- NOTE | 2018-10-24 14:21 | NUR ---
update: Report called to BERNA Galvez. Pt informed he would be moving to medical floor. Pt denies questions or concerns at this time. Stable at time of transfer.
--- NOTE | 2018-10-24 16:23 | NUR ---
SHIFT SUMMARY PCU TRANSFER THIS AFTERNOON. PATIENT SETTLED INTO ROOM. PATIENT DENIES PAIN, NAUSEA, OR SHORTNESS OF BREATH. CALL LIGHT IN REACH, WILL CONTINUE TO MONITOR.
--- NOTE | 2018-10-25 07:43 | NUR ---
SHIFT SUMMARY: PT IS A&O, INDEPENDENT IN . PRN HYDRALAZINE ADMINISTERED 1X TONIGHT FOR SYSTOLIC >160. PT RESPONDED WELL. ON 3L VIA NC, BASELINE O2. LS WHEEZY T/O ALL LUNG HUDSON. NEBULIZERS Q4H WHEN PT IS AWAKE. PT TO D/C TODAY THERE WERE NO ACUTE EVENTS OVERNIGHT. WILL CONT TO MONITOR AND PROVIDE CARE UNTIL PRESUMED BY ONCOMING RN.
--- NOTE | 2018-10-25 09:42 | NUR ---
HE HAS A NONPRODUCTIVE COUGH. IT TAKES HIS BREATH AWAY. HE IS VERY TIRED.
[2018-10-25] MEDS ORDERED: PRED20 PO (11:17)
[2018-10-25] MEDS ORDERED: DULERA 100 MCG/13 GM INH (11:17)
--- NOTE | 2018-10-25 11:50 | NUR ---
DISCHARGED HOME WITH BELONGINGS AND INSTRUCTIONS. HE IS DRIVING HIMSELF AND HIS PORTABLE O2 IS IN HIS CAR. HE KNOWS TO METROLOGY TECHNICIAN HIS [address] [facility].
== END 2018-10-25 11:57 | disposition home or self-care (01) | DRG 189 ==
LOC: ER 09:33 → PCU 11:48 → MEDS 10-24 15:53
PROVIDERS: Emergency Medicine; Hospitalist; Internal Medicine; Nurse Practitioner Acute Care; ADMIT Internal Medicine
PROC: 3E0234Z Introduction of Serum, Toxoid and Vaccine into Muscle, Percutaneous Approach (ICD-10-PCS; principal; 2018-10-19)
DX: J96.21 Acute and chronic respiratory failure with hypoxia (principal); N17.9 Acute kidney failure, unspecified; J44.1 Chronic obstructive pulmonary disease with (acute) exacerbation; E87.1 Hypo-osmolality and hyponatremia; I50.32 Chronic diastolic (congestive) heart failure; I11.0 Hypertensive heart disease with heart failure; J96.22 Acute and chronic respiratory failure with hypercapnia; E87.6 Hypokalemia; E66.01 Morbid (severe) obesity due to excess calories; G47.33 Obstructive sleep apnea (adult) (pediatric); F17.200 Nicotine dependence, unspecified, uncomplicated; R73.9 Hyperglycemia, unspecified; Z99.81 Dependence on supplemental oxygen; Z88.8 Allergy status to other drugs, medicaments and biological substances; Z79.82 Long term (current) use of aspirin; Z79.899 Other long term (current) drug therapy; Z23 Encounter for immunization
CPT/HCPCS: 31720; 36415; 71045; 71260; 80048; 80053; 82803; 83605; 83880; 84484; 85025; 87040; 87804; 90686; 93005; 93010; 94640; 94660; 94760; 94762; 96361; 96374; 99285-25; G0008; J0360; J1650; J1940; J2930; J3010; J7030; Q9967

== ENCOUNTER 2018-11-05 16:27 | Inpatient (IN) | payer OTHER ==
[~2018-11-05] VITALS: Ht 175.3 cm; Wt 113.4 kg
[~2018-11-05 16:27] MED LIST changes: +ALLO100 PO; +DULERA 100 MCG/13 GM INH; +FLUT1DIS8 INH; +LOSARTAN POTAS100 MG PO; +Norco 10-325 T1 EACH PO; +POTCHL20ER PO
[2018-11-05 16:48] LABS: PCO2 Arterial 57.7 mmHg (35-45); PO2 Arterial 227 mmHg (80-100)
[2018-11-05 17:36] LABS: BASOPHILS ABSOLUTE AUTO 0.02 K/mm3 (0.00-0.23); BASOPHILS PERCENT AUTO 0 % (0-2); EOSINOPHILS PERCENT AUTO 1 % (0-6); Hematocrit 41.5 % (37.0-53.0); Hemoglobin 12.9 g/dL (13.5-17.5); IMMATURE GRAN ABSOLUTE AUTO 0.11 K/mm3 (0.00-0.10); IMMATURE GRAN PERCENT AUTO 1 % (0-1); LYMPHOCYTES ABSOLUTE AUTO 0.84 K/mm3 (0.84-5.20); LYMPHOCYTES PERCENT AUTO 6 % (21-46); MONOCYTES ABSOLUTE AUTO 0.64 K/mm3 (0.16-1.47); MONOCYTES PERCENT AUTO 5 % (4-13); Mean Corpuscular HGB 31.9 pg (26.0-34.0); Mean Corpuscular HGB Conc 31.1 g/dL (31.5-36.5); Mean Corpuscular Volume 103 fL (80-100); Mean Platelet Volume 9.3 fL (9.1-12.4); NEUTROPHILS ABSOLUTE AUTO 11.76 K/mm3 (1.96-9.15); NEUTROPHILS PERCENT AUTO 87 % (41-73); Platelet Count 176 K/mm3 (150-400); RDW Coefficient Variation 13.8 % (11.7-14.2); Red Blood Cell Count 4.04 M/mm3 (4.30-5.90); White Blood Cell Count 13.47 K/mm3 (4.00-11.30)
[2018-11-05 19:23] LABS: Alanine Aminotransfer (ALT/SGP 45 U/L (12-78); Albumin, Blood 3.2 g/dL (3.4-5.0); Albumin/Globulin Ratio 0.8 (0.8-1.8); Alk Phos 87 U/L (50-136); Anion Gap 6 mmol/L (6-16); Aspartate Aminotrans (AST/SGOT 33 U/L (12-37); Bilirubin, Total 0.6 mg/dL (0.1-1.0); Blood Urea Nitrogen 36 mg/dL (8-24); Bun/Creatinine Ratio 28.6 (12.0-20.0); CO2, Blood 33 mmol/L (21-32); Calcium, Blood 8.6 mg/dL (8.5-10.1); Chloride, Blood 90 mmol/L (98-108); Creatinine, Blood 1.26 mg/dL (0.60-1.20); Globulin, Blood 3.8 g/dL (2.2-4.0); Glomerular Filtration Rate >60 (60-); Glucose, Blood 141 mg/dL (70-99); Magnesium, Blood 2.1 mg/dL (1.6-2.4); Potassium, Blood 4.8 mmol/L (3.5-5.5); Sodium, Blood 129 mmol/L (136-145); Troponin I <0.015 ng/mL (0.000-0.040)
[2018-11-06 01:01] LABS: Adenovirus Not Detected (NOT DETECT); Bordetella pertussis Not Detected (NOT DETECT); Chlamydophila pneumoniae Not Detected (NOT DETECT); Coronavirus 229E Not Detected (NOT DETECT); Coronavirus HKU1 Not Detected (NOT DETECT); Coronavirus NL63 Not Detected (NOT DETECT); Coronavirus OC43 Not Detected (NOT DETECT); Human Metapneumovirus Not Detected (NOT DETECT); Human Rhinovirus/Enterovirus Not Detected (NOT DETECT); Influenza A Not Detected (NOT DETECT); Influenza A/2009-H1 Not Detected (NOT DETECT); Influenza A/H1 Not Detected (NOT DETECT); Influenza A/H3 Not Detected (NOT DETECT); Influenza B Not Detected (NOT DETECT); Mycoplasma pneumoniae Not Detected (NOT DETECT); Parainfluenza Virus 1 Not Detected (NOT DETECT); Parainfluenza Virus 2 Not Detected (NOT DETECT); Parainfluenza Virus 3 Not Detected (NOT DETECT); Parainfluenza Virus 4 Not Detected (NOT DETECT); Respiratory Syncytial Virus Detected (NOT DETECT)
[2018-11-06 03:31] LABS: BASOPHILS ABSOLUTE AUTO 0.01 K/mm3 (0.00-0.23); BASOPHILS PERCENT AUTO 0 % (0-2); EOSINOPHILS PERCENT AUTO 0 % (0-6); Hematocrit 34.9 % (37.0-53.0); IMMATURE GRAN ABSOLUTE AUTO 0.08 K/mm3 (0.00-0.10); IMMATURE GRAN PERCENT AUTO 1 % (0-1); LYMPHOCYTES PERCENT AUTO 3 % (21-46); MONOCYTES ABSOLUTE AUTO 0.07 K/mm3 (0.16-1.47); MONOCYTES PERCENT AUTO 1 % (4-13); Mean Corpuscular HGB Conc 31.5 g/dL (31.5-36.5); Mean Corpuscular Volume 102 fL (80-100); Mean Platelet Volume 9.1 fL (9.1-12.4); NEUTROPHILS ABSOLUTE AUTO 9.51 K/mm3 (1.96-9.15); NEUTROPHILS PERCENT AUTO 95 % (41-73); Platelet Count 158 K/mm3 (150-400); RDW Coefficient Variation 13.8 % (11.7-14.2); RDW Standard Deviation 51.5 fL (35.1-46.3); Red Blood Cell Count 3.44 M/mm3 (4.30-5.90); White Blood Cell Count 9.97 K/mm3 (4.00-11.30)
[2018-11-06 03:49] LABS: Alanine Aminotransfer (ALT/SGP 39 U/L (12-78); Albumin, Blood 2.8 g/dL (3.4-5.0); Albumin/Globulin Ratio 0.8 (0.8-1.8); Alk Phos 70 U/L (50-136); Anion Gap 3 mmol/L (6-16); Aspartate Aminotrans (AST/SGOT 24 U/L (12-37); Bilirubin, Total 0.3 mg/dL (0.1-1.0); Blood Urea Nitrogen 33 mg/dL (8-24); Bun/Creatinine Ratio 28.7 (12.0-20.0); CO2, Blood 35 mmol/L (21-32); Calcium, Blood 8.4 mg/dL (8.5-10.1); Chloride, Blood 93 mmol/L (98-108); Creatinine, Blood 1.15 mg/dL (0.60-1.20); Globulin, Blood 3.6 g/dL (2.2-4.0); Glomerular Filtration Rate >60 (60-); Glucose, Blood 183 mg/dL (70-99); Potassium, Blood 4.7 mmol/L (3.5-5.5); Sodium, Blood 131 mmol/L (136-145); Total Protein, Blood 6.4 g/dL (6.4-8.2)
--- NOTE | 2018-11-06 06:12 | NUR ---
Shift Summary: Patient arrived to unit approx 2044hr via stretcher, accompanied by ED nurse. On Oxymizer at 10-15LPM, O2-92-96%. Denies dyspnea/SOB except with exertion, recovers with rest. C/o pain (chronic) to back. Obtained order per Akash Pushpinger for PRN [place] 1 tab q8hr, x1 dose this shift effectively managing pain. Transferred to [facility] to void, x1. Patient also insist on sitting/dangling on bedside r/t c/o dyspnea and pain while lying in bed. Assisted with transfer to recliner chair, and remained in chair throughout shift, able to tolerated recline position. Slept well throughout remainder of shift after being placed in chair. Placed on CPAP of 12, 40-45% FiO2 while sleeping. Has periods of apnea/shallow respirations while sleeping, appears to be r/t central sleep apnea. Peripheral IV to left forearm patent and intact. Call light in reach, makes needs known. Will continue to monitor until report to day shift RN.
--- NOTE | 2018-11-06 07:33 | NUR ---
ASSUMED CARE: PT SITTING AT SIDE OF BED UPON ENTERING. ASSISTED BACK INTO CHAIR. WANTED OXYMIZER IN PLACE BUT WAS SOB AND DYSPNEIC AND REQUESTED CPAP INSTEAD. SITTING IN RECLINER AT THIS TIME WITH CPAP IN PLACE. NO ACUTE NEEDS OR CONCERNS AT THIS TIME.
--- NOTE | 2018-11-06 10:48 | NUR ---
DR CUELLO CAME TO SEE PT WITH DAUGHTER AT BEDSIDE. ANTICIPATES THAT PT WILL BE HERE FOR A FEW MORE DAYS. PT IS NOW PCU STATUS. SECURITY GUARD AWARE. RESTING IN CHAIR, ALTERNATES BETWEEN BIPAP AT 12/8 AND OXYMIZER AT 13L. TITRATING TO MAINTAIN SATS. NO ACUTE NEEDS OR CONCERNS AT THIS TIME.
--- NOTE | 2018-11-06 13:18 | NUR ---
Mr. Day was on biPap and a conversation was difficult. Per admit trigger, I offered prayer that he happily accepted. He believes he is imrpoving and will return to baseline. No concerns verablized. He appears calm and satisfied with care. No family present at time of visit. I will remain available.
--- NOTE | 2018-11-06 14:32 | NUR ---
REPORT CALLED TO JOSE RAFAEL CORONEL FOR PT TO TRANSFER. PT STATES HE WILL CONTACT HIS DAUGHTER ABOUT TRANSFERRING TO DIFFERENT ROOM. NO FURTHER NEEDS OR CONCERNS.
--- NOTE | 2018-11-06 19:46 | NUR ---
SHIFT SUMMARY 1420 PT RECEIVED FROM ICU. VSS. ALERT AND ORIENTED X3. ON OXYMIZER AT 12L VIA NC, SATURATING 93-94% AT REST. UP TO BATHROOM WITH STANDBY ASSIST. UP IN RECLINER THROUGHOUT THE AFTERNOON. C/O 9/10 BACK PAIN, MEDICATED WITH PRN PAIN MEDS. REPORT TO CAD APPLICATION SUPPORT SPECIALIST RN.
--- NOTE | 2018-11-07 05:57 | NUR ---
PCU NOC SHIFT SUMMARY PATIENT ALERT AND ORIENTED X4. RESP E/U AT REST ON 12 LPM HIGH FLOW CANNULA - PATIENT ALSO USES BIPAP TO LAY BACK (80 DEGREES) AND FOR EXCERTION RECONVERY. PATIENT ANXIOUS REGARDING BREATHING BUT VSS STABLE ON OXYGEN. NO ACUTE EVENTS T/O SHIFT. HR REMAINS IN NSR IN THE 90-100 RANGE. PATIENT HAS EDEMA IN BLE AND NOTED DISTENDED ABD THAT PATIENT STATES 'IS FULL OF WATER'. CONTINUOUS BIOX IN PLACE T/O SHIFT. PATIENT SBA TO COMMODE, RECLINER AND BED TO REDUCE EXCERTION. WILL CONTINUE TO MONITOR AND GIVE REPORT TO DAYSHIFT RN. PATIENT DENIES ANY NEEDS AT THIS TIME, CALL LIGHT W/I REACH.
--- NOTE | 2018-11-07 20:20 | NUR ---
SUMMARY- PT ALERT AND ORIENTED. SITTING UP AT THE EDGE OF THE BED WITH ARMS ON BEDSIDE TABLE MOST OF THE SHIFT. HIGH FLOW O2 15 LITERS DOWN TO 12L BY THE END OF SHIFT. USED BIPAP INTERMITTANTLY. CAN ONLY HANDLE FOR SHORT PERIODS RELATED TO COUGHING EPISODES. GIVEN NORCO 10MG TAB HELPFUL FOR CHRONIC BACK PAIN. PT UP IN CHAIR SBA, GOOD STRENGTH, EXERTIONAL DYSPNIA RECOVERED QUICK, LIKES SITTING UP IN THE RECLINER WITH ARMS ON PILLOWS. ONE EPISODE OF EXCESSIVE COUGHING WHEN PT TOOK OFF BIBAB AND TOOK ABOUT 2 MIN TO RECOVER BREATING EFFORT. MEDICATED WITH ADDITIONAL LASIX, PT VOIDING LG AMOUNTS. TOLERATING FOOD AND FLUID. HOLDEN PEARLS FOR COUGH.
--- NOTE | 2018-11-08 04:25 | NUR ---
PROVIDER CONTACTED PT REPORTING THAT HE IS "HAVING AN ANXIETY ATTACK". STATES THAT HE NEEDS MEDICATION FOR ANXIETY. DR RAMIREZ CONTACTED AND ORDERS RECEIVED FOR ONE TIME DOSE OF ATIVAN. WILL INPUT ORDERS AND ADMINISTER.
--- NOTE | 2018-11-08 07:37 | NUR ---
SHIFT SUMMARY- PT HAS REMAINED AOX4 THROUGHOUT SHIFT. BLOOD PRESSURE HAS BEEN ELEVATED THROUGHOUT THE NIGHT, ALL OTHER VSS. PT HAS BEEN ANXIOUS THROUGHOUT MOST OF SHIFT. O2 SATS HAVE REMAINED >90% ON 12L VIA HIGH FLOW NASAL CANNULA WHEN HE IS RELAXED, BUT DESATURATES TO MID 80'S WHEN HE IS HAVING EPISODES OF ANXIETY. PT REQUIRES LOTS OF ENCOURAGEMENT TO UTILIZE RELAXATION AND BREATHING TECHNIQUES, BUT WHEN UTILIZED, THESE TECHNIQUES ARE TEMPORARILY EFFECTIVE AND O2 SATURATIONS INCREASE TO >92% . BIPAP UTILIZED ON AND OFF THROUGHOUT THE NIGHT. PT STATES THAT HE "CANNOT TOLERATE THE BIPAP BECAUSE IT IS PUSHING AIR INTO HIS LUNGS WHEN HE WANTS TO BREATH OUT" PT EDUCATED ON HOW BIPAP WORKS AND ENCOURAGED TO LET MACHINE ASSIST WITH RESPIRATORY EFFORT. MEDICATED MULTIPLE TIMES FOR GENERALIZED PAIN THAT DECREASES WITH MEDICATION AND MEDICATED ONCE FOR ANXIETY THAT DID NOT RELIEVE WITH ORDERED MEDICATIONS. NO OTHER CHANGES NOTED FROM INITIAL ASSESSMENT. WILL CONTINUE TO MONITOR AND REPORT TO ONCOMING SHIFT RN. BED IN LOW POSITION, CALL LIGHT IN REACH.
--- NOTE | 2018-11-08 10:05 | NUR ---
Pt. yelling in room "help". Also talking on phone with daughter stating that he has not been helped, staff is trying to kill him and the notify the news review and news stations. Pt was confronted about this statment. He says he has not been helped for 8 hours and that he keeps asking for help but that he wasn't getting it. Informed pt what he said is a false statement. Educated Pt on the medications he has been given, the treatment plan, the side effects of the medications, the call system, nurse care rounding and the PCU routine. Pt appologized and agreed that staff has been in the room. Also educated Pt on relaxation and breathing techniques. States "when you explain things it helps me feel better". Pt was medicated with Ativan 1 mg IV as well as given all his AM medications and assisted back to bed. Call light in reach.
--- NOTE | 2018-11-08 13:15 | NUR ---
UPDATE: At around 1300 Pt pulled off tele, oxygen and ripped off cont biox monitor and was found crawling into hallway yelling for help. Pt was diapheretic, cianotic and pale. Oxygen placed at 15L HFNC and assisted up to W/C. Biox was 77% but recovered back to 94% very quickly. BP was elevated. Pt confermed that he did not fall, that he was just crawling out to "get help". When asked what help he needed pt was unable to say what. Physician was notified, chair alarm placed. Call light in reach and Pt encouraged to use it.
[2018-11-08 16:28] LABS: pH Blood Arterial 7.33 (7.35-7.45)
[2018-11-08 16:29] LABS: PCO2 Arterial 81 mmHg (35-45)
--- NOTE | 2018-11-08 18:28 | NUR ---
SHIFT SUMMARY PT RESTING IN BED AND RECLINER TODAY. ALERT AND ORIENTED THIS MORNING, BUT EXTREMELY ANXIOUS. NOW DOSE OF IV ATIVAN GIVEN, PT RESTING IN RECLINER OFF AND ON, PULLING AT TELEMETRY. LUNG SOUNDS EXPIRATORY WHEEZES, DIMINISHED BASES. AROUND 1300, PT WAS FOUND BY STAFF, CRAWLING INTO THE HALLWAY ASKING FOR HELP. PT ASSISTED BACK TO BED, PT CONFIRMS THAT HE DID NOT FALL. DR. CUELLO NOTIFIED, NO NEW ORDERS. WILL CONTINUE TO MONITOR. CHAIR ALARM PLACED UNDER PT AND PT SLEEPING IN RECLINER THIS AFTERNOON. PT TRANSFERED TO ROOM PCU9 FOR CLOSER OBSERVATION. PT CONTINUE TO BE CONFUSED OFF AND ON, DAUGHTER AT BEDSIDE. ABG COMPLETED, CRITICALLY HIGH PCO2, PT PLACED ON BIPAP AND TOLD TO KEEP IT ON UNTIL DINNER. PT VERBALIZES UNDERSTANDING. TOLERATING BIPAP WELL. PT PULLING OFF BIPAP THIS EVENING AND STATING "I CAN GO HOME AFTER DINNER, RIGHT?". REINFORCED PT's NEED FOR BIPAP, PT UNHAPPY ABOUT IT, BUT SEEMS MORE AGREEABLE. VOIDING PER URINAL. HYPERTENSIVE TODAY, MEDICATED X1 WITH IV LABETALOL. WILL CONTINUE TO MONITOR.
--- NOTE | 2018-11-08 19:52 | NUR ---
ASSUMED CARE PT RESTING IN ROOM COMFORTABLY. PT HAS IRRITATBLE AFFECT AT THIS TIME. DAY SHIFT RN REPORTS PT HAS BEEN UPSET W/ ROOM CHANGE TODAY AND HAS BEEN ANXIOUS T/O DAY. PER DAY SHIFT PT AT ONE POINT CRAWLED OUT OF ROOM TO HALLWAY BECAUSE HE REPORTED NO ONE ANSWERED HIS CALL LIGHT OR HIS YELLS. PER DAY SHIFT STAFF WAS AT NURSING STATING AND NO CALL LIGHT ALARMED, AND NO YELLING WAS HEARD. PT WAS MOVED TO ROOM 9 FOR BETTER OBSERVATION. RESP EVEN UNLABORED ON 12L O2 VIA HIGH FLOW CANNULA. PT WEARS BIPAP AT TIMES AND TOLERATES FAIR. DAY SHIFT REPORTS PT ONLY TOLERATES BIPAP FOR SHORT PERIODS, AND PULLS MASK OFF HIMSELF. DENIES ANY PAIN AT THIS TIME. CALL LIGHT IS IN REACH.
[2018-11-08 21:14] LABS: PCO2 Arterial 69.9 mmHg (35-45); PO2 Arterial 72.4 mmHg (80-100); pH Blood Arterial 7.39 (7.35-7.45)
--- NOTE | 2018-11-08 23:28 | NUR ---
IV TO LFA NOTED. WAS NOT CHARTED. UNKNOWN WHO STARTED IV
--- NOTE | 2018-11-09 05:46 | NUR ---
SHIFT SUMMARY PT RESTING IN ROOM COMFORTABLY AT THIS TIME. NO ACUTE CHANGES T.O NIGHT PT WAS MEDICATED EARLY IN THE NIGHT FOR ANXIETY AND SLEPT WELL WITH BIPAP ON FOR SEVERAL HOURS. PT AWOKE ANXIOUS AND PULLED OFF BIPAP. PT CONTIUNUED TO PULL OFF OXYGEN AT POINTS T/O NIGHT. PT APPEARED CONFUSED BUT WAS ABLE TO ANSWER PLACE AND EVENT. PT SITTING UP ON SIDE OF BED OF 0200. PT COMPLAINING OF PAIN AT THIS TIME. WILL MEDICATE PER EMAR. CALL LIGHT IN REACH.
--- NOTE | 2018-11-09 15:07 | NUR ---
Assumed Care: Assumed care of pt at approx 0700. VSS. In no apparent sign of distress. Pt is A&Ox4 this am and calling appropriately. C/o chronic back and leg pain. Pt repositions self. See shift assessment for detailed assessment. Received anonymous call this AM from an unknown family member who expressed concern for possibility of ETOH withdrawal. Pt currently resting in bed with call light within reach. Denies any further questions, complaints or requests at this time. Will continue to monitor.
--- NOTE | 2018-11-09 17:35 | NUR ---
Shift Summary No acute changes since initial shift assessment. VSS. In no apparent sign of distress. Dr. Sibley at bedside this evening and received order for bowel care, PRN medication for HTN and discussed pt request for IV dose of diuretic because of not feeling like he has urinated enough, although he has had over 1500mls of urine out today. Pt wore BiPAP for approx 6 hours today. Titrated O2 down from 12L at start of shift to 8L O2 NC now. No acute changes or events on tele. Pt denies any acute events or complaints t/o the shift besides becomming anxious/aggitated/shaky this afternoon and had a headache. Pt currently resting in bed with call light within reach. Denies any further questions, complaints or requests at this time. Will continue to montior until report is given to inge CORONEL.
--- NOTE | 2018-11-10 00:40 | NUR ---
ASSUMED CARE OF PATIENT AT APPROXIMATELY 1915 FROM SHANNAN Lewis RN. PATIENT ALERT AND ORIENTED X4; CONFUSED AT TIMES. PATIENT DENIES PAIN, NAUSEA AND DIZZINESS. N/T IN LEGS CHRONIC. PATIENT ON BIPAP 14/ 45% FIO2 OR HF NC; TITRATED FROM 8LPM AT SHIFT CHANGE TO 4LPM; PATIENT REPORTS HE IS NORMALLY ON 2LPM VIA NC AT HOME. PATIENT REQUESTING ATIVAN; ANXIOUS; AGITATED AT TIMES; SHAKY AT TIMES. PATIENT GOES FROM LAYING IN BED TO DANGLING FEET ON SIDE OF BED EVERY HOUR OR SO; TAB ALARM IN PLACE. ONE ASSIST W/ URINAL AT BEDSIDE. SR/ST ON TELE; SBP IN 180'S AT START OF SHIFT; IV LOPRESSOR GIVEN 10 MINUTES BEFORE SHIFT CHANGE; 149 LAST SBP. PIV S/L. PATIENT CURRENTLY RESTING IN BED; CALL LIGHT IN REACH; BED ALARM ON; BED IN LOWEST POSISTION; WILL CONTINUE TO MONITOR AND ASSESS UNTIL END OF SHIFT.
--- NOTE | 2018-11-10 06:08 | NUR ---
PATIENT SLEPT ABOUT SIX HOURS LAST NIGHT. PATIENT REPORTED PAIN IN BACK OF LEGS; MEDICATED PER EMAR. NO OTHER ACUTE CHANGES TO REPORT. WILL CONTINUE TO MONITOR AND ASSESS UNTIL END OF SHIFT.
[2018-11-10 08:46] LABS: Anion Gap 0 mmol/L (6-16); Blood Urea Nitrogen 30 mg/dL (8-24); Bun/Creatinine Ratio 37.2 (12.0-20.0); CO2, Blood 44 mmol/L (21-32); Calcium, Blood 9.2 mg/dL (8.5-10.1); Chloride, Blood 89 mmol/L (98-108); Creatinine, Blood 0.81 mg/dL (0.60-1.20); Glomerular Filtration Rate >60 (60-); Glucose, Blood 163 mg/dL (70-99); Potassium, Blood 4.9 mmol/L (3.5-5.5); Sodium, Blood 133 mmol/L (136-145)
--- NOTE | 2018-11-10 09:39 | NUR ---
Pt stood with minimal assistance (he was declining help from staff) to use the urinal. He before this had been requesting to go back on the bipap to take a nap because his daughter said he was falling asleep. Assisted back to bed, fowlers position, with bipap on.. sp02 droppped to 78% during the peak of theactivity level, recovered to 92-93% and RR of 17 /min after wearing the bipap.
--- NOTE | 2018-11-10 14:26 | NUR ---
AMA: Pt discharged AMA at 1410. HTN. Pt educated that he has remained HTN and the risks of leaving with HTN and recent 20 beat run of V-tach. Pt educated on all risks of leaving AMA and still unstable respiratory status given that the pt is still wearing BiPAP while sleeping, and does not have any breathing devices at home besides O2 via NC. Pt on 4L O2 NC when leaving the hospital. Still c/o SOB at rest. Dr. Sibley notified of pt DC AMA and wrote for prescription prednisone. Pt still wishes to leave hospital AMA despite efforts to educate pt on risks of leaving before doctor clearance. Pt discharged home with daughter Anya via wheelchair. Mild respiratory distress. Pt denies any further questions, complaints or concerns upon discharge. Pt states that there were no acute events or complaints that led to his decision to leave AMA today, but that he "connot stand to stay in the hospital for another 24 hours longer".
== END 2018-11-10 14:23 | disposition left against medical advice (07) | DRG 871 ==
LOC: ER 16:27 → ICUW 18:38 → PCU 11-06 14:19
PROVIDERS: Hospitalist; Nurse Practitioner Acute Care; Physician Assistant; ADMIT Internal Medicine
PROC: 5A09357 Assistance with Respiratory Ventilation, Less than 24 Consecutive Hours, Continuous Positive Airway Pressure (ICD-10-PCS; principal; 2018-11-05)
DX: A41.9 Sepsis, unspecified organism (principal); J18.9 Pneumonia, unspecified organism; J96.21 Acute and chronic respiratory failure with hypoxia; G93.41 Metabolic encephalopathy; I50.32 Chronic diastolic (congestive) heart failure; J44.0 Chronic obstructive pulmonary disease with (acute) lower respiratory infection; J44.1 Chronic obstructive pulmonary disease with (acute) exacerbation; E78.5 Hyperlipidemia, unspecified; R65.20 Severe sepsis without septic shock; Z68.36 Body mass index [BMI] 36.0-36.9, adult; F17.210 Nicotine dependence, cigarettes, uncomplicated; E66.01 Morbid (severe) obesity due to excess calories; G47.33 Obstructive sleep apnea (adult) (pediatric); M10.9 Gout, unspecified; Z96.641 Presence of right artificial hip joint; Z79.82 Long term (current) use of aspirin; Z99.81 Dependence on supplemental oxygen; F41.9 Anxiety disorder, unspecified; B97.4 Respiratory syncytial virus as the cause of diseases classified elsewhere; T38.0X5A Adverse effect of glucocorticoids and synthetic analogues, initial encounter; Y92.239 Unspecified place in hospital as the place of occurrence of the external cause; R41.0 Disorientation, unspecified; R53.83 Other fatigue; Z91.19 Patient's noncompliance with other medical treatment and regimen
CPT/HCPCS: 36415; 36600; 71045; 80048; 80053; 82803; 83605; 83735; 83880; 84145; 84484; 85025; 87040; 87486; 87581; 87633; 87798; 93005; 93010; 94640; 94660; 94762; 96365; 96375; 99285-25; J0456; J0696; J1650; J1940; J1956; J2060; J2930; J7050

== ENCOUNTER 2018-11-11 13:56 | Inpatient (IN) | payer OTHER ==
[~2018-11-11] VITALS: Ht 175.3 cm; Wt 108.5 kg
[2018-11-11 14:18] LABS: BASOPHILS ABSOLUTE AUTO 0.01 K/mm3 (0.00-0.23); BASOPHILS PERCENT AUTO 0 % (0-2); EOSINOPHILS ABSOLUTE AUTO 0.01 K/mm3 (0.00-0.68); EOSINOPHILS PERCENT AUTO 0 % (0-6); Hematocrit 42.6 % (37.0-53.0); Hemoglobin 13.7 g/dL (13.5-17.5); IMMATURE GRAN ABSOLUTE AUTO 0.07 K/mm3 (0.00-0.10); IMMATURE GRAN PERCENT AUTO 1 % (0-1); LYMPHOCYTES ABSOLUTE AUTO 0.69 K/mm3 (0.84-5.20); LYMPHOCYTES PERCENT AUTO 8 % (21-46); MONOCYTES ABSOLUTE AUTO 0.59 K/mm3 (0.16-1.47); MONOCYTES PERCENT AUTO 7 % (4-13); Mean Corpuscular HGB 32.2 pg (26.0-34.0); Mean Corpuscular HGB Conc 32.2 g/dL (31.5-36.5); Mean Corpuscular Volume 100 fL (80-100); NEUTROPHILS ABSOLUTE AUTO 7.63 K/mm3 (1.96-9.15); NEUTROPHILS PERCENT AUTO 85 % (41-73); Platelet Count 230 K/mm3 (150-400); Red Blood Cell Count 4.26 M/mm3 (4.30-5.90)
[2018-11-11 14:31] LABS: PCO2 Arterial 69.9 mmHg (35-45); PO2 Arterial 117 mmHg (80-100); pH Blood Arterial 7.49 (7.35-7.45)
[2018-11-11 14:42] LABS: Alanine Aminotransfer (ALT/SGP 59 U/L (12-78); Albumin, Blood 3.3 g/dL (3.4-5.0); Albumin/Globulin Ratio 0.9 (0.8-1.8); Alk Phos 67 U/L (50-136); Anion Gap Unable to Calculate mmol/L (6-16); Aspartate Aminotrans (AST/SGOT 27 U/L (12-37); Bilirubin, Total 0.3 mg/dL (0.1-1.0); Blood Urea Nitrogen 27 mg/dL (8-24); Bun/Creatinine Ratio 35.5 (12.0-20.0); CO2, Blood >45 mmol/L (21-32); Chloride, Blood 77 mmol/L (98-108); Creatinine, Blood 0.76 mg/dL (0.60-1.20); Globulin, Blood 3.7 g/dL (2.2-4.0); Glomerular Filtration Rate >60 (60-); Glucose, Blood 184 mg/dL (70-99); Potassium, Blood 3.9 mmol/L (3.5-5.5); Sodium, Blood 131 mmol/L (136-145)
--- NOTE | 2018-11-11 19:55 | NUR ---
PM NOTE. ASSUMED CARE OF PT APROX 1900, PT IS A&Ox4 AND SBA IN THE ROOM, PT IS CURRENTLY UP IN A CHAIR ON BIPAP. PT'S DAUGHTER AT THE BEDSIDE ASKED FOR AN UPTDATE ON THE PT. PT GAVE PERMISSION AND UPDATE WAS PROVIDED, BOTH PT AND DAUGHTER DENIED ANY FURTHER QUESTIONS. PT WAS GIVEN A BREAK FROM THE BIPAP AND WAS PLACED ON NC AT 4L. PT TOLERATED THIS FOR APROX 30 MINS AND THEN WAS PUT BACK ON BIPAP DUE TO O2 SATS IN THE HIGH 70'S-LOW 80'S AND INCREASED WORK OF BREATHING. TELE INTACT, ST W/BBB IN THE 120'S, PT'S BP 174/96, 2+ EDEMA NOTED TO THE PT'S BLLE. L/S DIM AND TIGHT T/O W/FINE CRACKLES IN THE LEFT BASE. BT PRESENT AND HYPOACTIVE, ABD IS SLIGHTLY DISTENDED AND TENDER TO PALP. CALL LIGHT IN REACH, BED IS LOCKED AND LOW WILL CONTINUE TO MONITOR.
[2018-11-11 23:44] LABS: U Amphetamine Screen Not Detected; U Barbituate Screen Not Detected; U Benzodiazapine Screen Not Detected; U Buprenorphine Screen Not Detected; U Cannabinoids Screen Not Detected; U Cocaine Screen Not Detected; U Methadone Screen Not Detected; U Methamphetamine Screen Not Detected; U Opiates Screen DETECTED; U Oxycodone Screen Not Detected; U Phencyclidine Screen Not Detected; U Propoxyphene Screen Not Detected
--- NOTE | 2018-11-12 02:11 | NUR ---
PT UPDATE... PT HAS BEEN VERY ANXIOUS AND SOB, PT REQUESTED TO TAKE A BREAK FROM THE BIPAP STATING "I CAN'T SLEEP WITH THIS THING ON, I CAN'T RELAX AT ALL WITH IT BLOWING IN MY FACE." PT STARTED AT 4L NC AND NOW IS UP TO 6L AT 88%. PT COMPLAINS OF SEVERE ABD, BACK AND LEG PAIN, PT WAS MEDICATED PER EMAR. PT IS RESTING IN RECLINER CHAIR WITH EYES SHUT, PT WAS ENCOURAGED TO TRY TO SLEEP, WILL MONITOR.
[2018-11-12 04:04] LABS: BASOPHILS ABSOLUTE AUTO 0.01 K/mm3 (0.00-0.23); BASOPHILS PERCENT AUTO 0 % (0-2); EOSINOPHILS PERCENT AUTO 0 % (0-6); Hematocrit 40.6 % (37.0-53.0); Hemoglobin 12.9 g/dL (13.5-17.5); IMMATURE GRAN ABSOLUTE AUTO 0.06 K/mm3 (0.00-0.10); IMMATURE GRAN PERCENT AUTO 1 % (0-1); LYMPHOCYTES ABSOLUTE AUTO 0.34 K/mm3 (0.84-5.20); LYMPHOCYTES PERCENT AUTO 5 % (21-46); MONOCYTES ABSOLUTE AUTO 0.11 K/mm3 (0.16-1.47); MONOCYTES PERCENT AUTO 2 % (4-13); Mean Corpuscular HGB 31.6 pg (26.0-34.0); Mean Corpuscular HGB Conc 31.8 g/dL (31.5-36.5); Mean Corpuscular Volume 100 fL (80-100); Mean Platelet Volume 9.2 fL (9.1-12.4); NEUTROPHILS ABSOLUTE AUTO 6.47 K/mm3 (1.96-9.15); NEUTROPHILS PERCENT AUTO 93 % (41-73); Platelet Count 222 K/mm3 (150-400); RDW Coefficient Variation 13.1 % (11.7-14.2); RDW Standard Deviation 48.4 fL (35.1-46.3); Red Blood Cell Count 4.08 M/mm3 (4.30-5.90); White Blood Cell Count 6.99 K/mm3 (4.00-11.30)
[2018-11-12 04:23] LABS: Anion Gap Unable to Calculate mmol/L (6-16); Blood Urea Nitrogen 31 mg/dL (8-24); CO2, Blood >45 mmol/L (21-32); Calcium, Blood 8.8 mg/dL (8.5-10.1); Chloride, Blood 77 mmol/L (98-108); Creatinine, Blood 0.86 mg/dL (0.60-1.20); Glomerular Filtration Rate >60 (60-); Glucose, Blood 175 mg/dL (70-99); Potassium, Blood 4.5 mmol/L (3.5-5.5); Sodium, Blood 129 mmol/L (136-145)
[2018-11-12 04:48] LABS: PCO2 Arterial 79.4 mmHg (35-45); PO2 Arterial 63.3 mmHg (80-100); pH Blood Arterial 7.45 (7.35-7.45)
--- NOTE | 2018-11-12 06:16 | NUR ---
SHIFT SUMMARY. PT HAS REFUSED TO WEAR THE BIPAP FOR MOST OF THIS SHIFT, PT STATED THAT HE CANNOT RELAX WHEN WEARING IT. PT'S O2 SATS HAVE BEEN 88-92% ON 6L NC, PT IS STILL SOB AND HAS AIR HUNGER, RT SPOKE WITH THIS RN AND SUGGESTED AN AIRVO, PROVIDER WAS CALLED AND ORDERS OBTAINED FOR THE AIRVO. PT IS TOLERATING THE AIRVO WELL AT THIS TIME. PT HAS NOT SLEPT THIS SHIFT AT ALL, PT STATES HE HAS NOT SLEPT IN "DAYS", AT TIMES WHEN PT IS TALKING WITH THIS RN PT'S EYES WILL ROLL BACK AND HIS HEAD WILL FALL BACK LIKE HE IS SLEEPING BUT WILL QUICKLY WAKE BACK UP, PT APPEARES TO HARDLY BE ABLE TO KEEP HIS EYES OPEN AT TIMES BUT DOES NOT ACTUALLY FALL ASLEEP. PT'S BP WAS ELEVATED, PROVIDER WAS CALLED AND ORDERS OBTAINED FOR PRN BP MEDICATIONS. PT'S VS HAVE BEEN STABLE OTHERWISE. CALL LIGHT IN REACH, BED IS LOCKED AND LOW WILL CONTINUE TO MONITOR UNTIL REPORT IS GIVEN TO ONCOMING RN.
--- NOTE | 2018-11-12 08:52 | NUR ---
ASUMED CARE OF PT AT 0700. PT SITTING IN FOOD WITH BREAKFAST. DOUGHTER AT BED SIDE. PT ON BIPAP. C/O ABDOMINAL AND GENERAL PAIN. HEART SOUNDS IRREGULAR. LUNG SOUNDS TIGHT, INSPIRATORY WHEEZING AND EXPIRATORY CRACKLES AT THE BASES. PT STATES HE IS "FEELING BETTER THAN YESTERDAY". PT CIRED OUT IN PAIN WHEN ASSESSING HIS FEET. DAUGHTER SAYS HE HAS SENSITIVE FEET. WILL CONTINUE TO ASSESS. CALL LIGHT WITHIN REACH.
--- NOTE | 2018-11-12 18:07 | NUR ---
PT CONTINUES TO SWITCH BETWEEN BIPAP AND AIRVO. PTS SATS DROPPED TO 85 WHEN SLEEPING ON BIPAP. WHEN AWOKEN O2 INCREASED TO 90. RT CALLED AND BIPAP SETTINGS WERE CHANGED ACCORDINGLY. PT UP IN CHAIR AND EATING DINNER. WILL CONTINUIE TO MONITOR. CALL LIGHT IN REACH.
--- NOTE | 2018-11-12 18:42 | NUR ---
Initial palliative care assessment: Met with Jovany this evening in his room. He is a 67 year old with a history of COPD, diastolic heart failure, AMY, HTN, arthritis, gout, morbid obesity. He has home O2 avaiable. He states his prescription for the O2 is for 3 l/min, however he states that sometimes "I crank it up to get more." This is his third admission in the less than a month, he left AMA on 11/10 and was readmitted on 11/11 for continued SOB. No family is currently present. He is sitting up in his chair picking at his dinner tray. He states that he doesn't have much of an appetite. He has eaten about 1/2 of the food on his tray so far. He is alert, however he closes his eyes frequently and appears to be chronically fatigued. He reports very poor sleep at home for years. He has sleep apnea which he currently doesn't treat. He stated that the doctor is getting me a machine at home to use a night to help with the sleep apnea. He takes shallow breaths and speaks in short sentences. At times during the conversation he will lean forward into a tripod position. Chronic cough. He reports he averages smoking about 2 ppd for the past 54 years. He states that he doesn't believe he would be able to quit even if he wanted to. He admires his son's choice to quit smoking 10 years ago and to not restart. Brief review of his chronic illness of COPD. Discussed what his goals for care would be. Asked him to consider his current quality of life and is that an acceptable level of quality for him. Discussed full code vs. DNR option with Jovany. Also gave a brief explaination of hospice services and when those would be appropriate. Visit kept short as pt appears fatigued and SOB. Asked Jovany to consider his options, will await further testing from MD. PC will plan to meet with Jovany and family in the next few days to discuss code status and advanced care planning. Will continue to follow for symptom management. Referral placed to re: obtaining a BIPAP machine per Dr. Ravi's nurse notify order placed this afternoon. Nursing updated on conversation and plan going forward.
--- NOTE | 2018-11-12 20:50 | NUR ---
PM NOTE. ASSUMED CARE OF PT APROX 1900, PT IS A&Ox4 AND SBA IN THE ROOM, PT WAS ADMITTED DUE TO RESP FAILURE, PT SPENT MOST OF THE DAY ON THE BIPAP PER REPORT. PT HAS GREATLY IMPROVED SINCE LAST NIGHT, PT HAS COLOR IN HIS CHEEKS AND HIS BREATHING IS NOT LABORED. TELE INTACT, ST AT 109 W/BBB AND PVCS PER PERIPATOLOGIST, PT'S BP 114/74, PT HAS 2+ PITTING EDEMA TO HIS BLLE. PT'S L/S INSP AND EXP WHEEZES, COARSE T/O AND DIM IN THE BASES, PT IS ON NC AT 6L, BIPAP SET TO 45% FI02 12/8 W/BACK UP RATE OF 12. BT PRESENT BUT HYPOACTIVE, ABD IS VERY DISTENDED, FIRM AND TENDER TO PALP, PT C/O OF SEVERE "CRAMPING/PRESSURE PAIN." PT HAS CHRONIC PAIN ISSUES AND HAS TAKEN NARCOTIC PAIN MEDICATIONS FOR YEARS, PT STATES HE HAS NOT BEEN HAVING "NORMAL" BMS RECENTLY AND COULD BE CONSTIPATED, BOWEL CARE STARTED. CALL [facility] IN REACH, BED IS LOCKED AND LOW WILL CONTINUE TO MONITOR.
[2018-11-13 04:01] LABS: BASOPHILS ABSOLUTE AUTO 0.01 K/mm3 (0.00-0.23); BASOPHILS PERCENT AUTO 0 % (0-2); EOSINOPHILS PERCENT AUTO 0 % (0-6); Hematocrit 38.6 % (37.0-53.0); Hemoglobin 12.3 g/dL (13.5-17.5); IMMATURE GRAN PERCENT AUTO 1 % (0-1); LYMPHOCYTES ABSOLUTE AUTO 0.46 K/mm3 (0.84-5.20); LYMPHOCYTES PERCENT AUTO 5 % (21-46); MONOCYTES ABSOLUTE AUTO 0.34 K/mm3 (0.16-1.47); MONOCYTES PERCENT AUTO 4 % (4-13); Mean Corpuscular HGB 31.5 pg (26.0-34.0); Mean Corpuscular HGB Conc 31.9 g/dL (31.5-36.5); Mean Corpuscular Volume 99 fL (80-100); NEUTROPHILS ABSOLUTE AUTO 8.43 K/mm3 (1.96-9.15); NEUTROPHILS PERCENT AUTO 90 % (41-73); Platelet Count 240 K/mm3 (150-400); RDW Coefficient Variation 13.2 % (11.7-14.2); RDW Standard Deviation 47.5 fL (35.1-46.3); White Blood Cell Count 9.34 K/mm3 (4.00-11.30)
[2018-11-13 04:23] LABS: Blood Urea Nitrogen 38 mg/dL (8-24); Bun/Creatinine Ratio 45.2 (12.0-20.0); Calcium, Blood 8.6 mg/dL (8.5-10.1); Chloride, Blood 77 mmol/L (98-108); Creatinine, Blood 0.84 mg/dL (0.60-1.20); Glomerular Filtration Rate >60 (60-); Glucose, Blood 241 mg/dL (70-99); Phosphorus, Blood 3.5 mg/dL (2.5-4.9); Potassium, Blood 4.6 mmol/L (3.5-5.5); Sodium, Blood 127 mmol/L (136-145)
[2018-11-13 04:28] LABS: Anion Gap Unable to Calculate mmol/L (6-16); CO2, Blood >45 mmol/L (21-32)
--- NOTE | 2018-11-13 06:09 | NUR ---
SHIFT SUMMARY. NO ACUTE CHANGES NOTED THIS SHIFT, PT SLEPT IN THE BED MOST OF THE NIGHT WEARING THE BIPAP. PT'S VS HAVE BEEN STABLE T/O SHIFT. PT COMPLAINED OF GENERALIZED PAIN AND WAS MEDICATED PER EMAR. PT C/O OF SEVERE ABD PAIN/PRESSURE, BOWEL CARE WAS STARTED PER EMAR. CALL LIGHT IN REACH, BED IS LOCKED AND LOW WILL CONTINUE TO MONITOR UNTIL REPORT IS GIVEN TO ONCOMING RN.
--- NOTE | 2018-11-13 10:33 | NUR ---
ECHOCARDIOGRAM COMPLETE
--- NOTE | 2018-11-13 12:06 | NUR ---
Patient is sitting on the edge of the bed and alert when I entered patient's room. Patient would nod off while he is talking and then catch himself and finish his sentence. Patient stated that the only reason he is still in the hospital is because they haven't been able to get the medical equipment that he neds at his home. Patient stated that he is frustrated with his disease and the constant air hunger. Patient has some family support and belief system that he leans on. We talked about dealing with new normals and living in the oments that he has. I listened empathically, provided pastoral correctional classification counselor, companionship and prayer. Patient responded well and showed signs of increased peace. Patient expressed gratitude for my visit.
--- NOTE | 2018-11-13 20:19 | NUR ---
SHIFT SUMMARY PT ALERT AND ORIENTED. VS STABLE. 02 SATS HAVE REMAINED ABOVE 92%. PT HAS BEEN ON 6L NC MOST OF SHIFT OTHER THAN BIPAP WHILE SLEEPING WITH FIO2 OF 35%. PT COMPLAINS OF UPPER ABD PAIN THAT HE THINKS IS CONSTIPATION. PT MEDICATED FOR CONSTIPATION, BUT NO BM THIS SHIFT. PT UP TO CHAIR FOR MEALS. CASE MANAGEMENT CALLED TO NOTIFY OF NEED FOR TRILOGY AT DISCHARGE PER DR. OLSON. NO OTHER CHANGES. REPORT GIVEN TO MOLDER HAND RN.
[2018-11-14 04:26] LABS: BASOPHILS ABSOLUTE AUTO 0.02 K/mm3 (0.00-0.23); BASOPHILS PERCENT AUTO 0 % (0-2); EOSINOPHILS PERCENT AUTO 0 % (0-6); Hematocrit 37.8 % (37.0-53.0); IMMATURE GRAN ABSOLUTE AUTO 0.12 K/mm3 (0.00-0.10); IMMATURE GRAN PERCENT AUTO 1 % (0-1); LYMPHOCYTES ABSOLUTE AUTO 1.36 K/mm3 (0.84-5.20); LYMPHOCYTES PERCENT AUTO 15 % (21-46); MONOCYTES ABSOLUTE AUTO 0.51 K/mm3 (0.16-1.47); MONOCYTES PERCENT AUTO 6 % (4-13); Mean Corpuscular HGB 32.2 pg (26.0-34.0); Mean Corpuscular HGB Conc 31.7 g/dL (31.5-36.5); Mean Corpuscular Volume 101 fL (80-100); Mean Platelet Volume 9.2 fL (9.1-12.4); NEUTROPHILS ABSOLUTE AUTO 7.01 K/mm3 (1.96-9.15); NEUTROPHILS PERCENT AUTO 78 % (41-73); Platelet Count 243 K/mm3 (150-400); RDW Standard Deviation 48.8 fL (35.1-46.3); Red Blood Cell Count 3.73 M/mm3 (4.30-5.90); White Blood Cell Count 9.02 K/mm3 (4.00-11.30)
--- NOTE | 2018-11-14 04:43 | NUR ---
SHIFT SUMMARY PT A&O X4. LUNG SOUNDS COARSE, DIM IN BASES. SPO2 > 90% ON 6L NC TITRATED TO 4L NC THIS SHIFT. PT MINIMALLY WEARING BIPAP THIS SHIFT, TOLERATING IT ONLY FOR SHORT DURATIONS BEFORE REMOVING. CO2 LEVELS AND NEED FOR BIPAP DISCUSSED W/ PT, WILL CONTINUE TO REINFORCE. MONITOR SHOWS NSR/ST, HR 70-115. PT GIVEN PRUNE JUICE D/T C/O CONSTIPATION AND ABD DISCOMFORT THIS SHIFT W/ RESULTING X-LARGE FORMED BM THIS SHIFT IN WHICH PT REPORTS FEELING "MUCH BETTER". PT SITTING UP IN CHAIR. WILL CONTINUE TO MONITOR AND PROVIDE CARE UNTIL REPORT OFF TO DAY SHIFT RN.
[2018-11-14 04:48] LABS: Albumin, Blood 2.9 g/dL (3.4-5.0); Blood Urea Nitrogen 28 mg/dL (8-24); Bun/Creatinine Ratio 39.1 (12.0-20.0); Calcium, Blood 8.6 mg/dL (8.5-10.1); Chloride, Blood 80 mmol/L (98-108); Creatinine, Blood 0.72 mg/dL (0.60-1.20); Glomerular Filtration Rate >60 (60-); Glucose, Blood 138 mg/dL (70-99); Phosphorus, Blood 2.8 mg/dL (2.5-4.9); Potassium, Blood 4.7 mmol/L (3.5-5.5); Sodium, Blood 126 mmol/L (136-145)
[2018-11-14 04:50] LABS: Anion Gap Unable to Calculate mmol/L (6-16)
[2018-11-14 04:58] LABS: CO2, Blood >45 mmol/L (21-32)
--- NOTE | 2018-11-14 07:31 | NUR ---
Bedside report received from Milly Ray RN. Jovany states that he would like to get back into bed soon. States that he is feeling "lousy". Milly states that he has not been wearing the bipap, except for 3 very brief periods, but each time that he puts it on, he quickly has a reason (eating, toileting) for it to be removed, and then he does not want to have it put back on. Spo2 88-92% while wearing oxygen 4 l/min delivery rate, whicle sitting up in the recliner.
--- NOTE | 2018-11-14 11:58 | NUR ---
BIPAP OFF FOR LUNCH. PT SITTING ON SIDE OF BED, NO DISTRESS.
--- NOTE | 2018-11-14 14:04 | NUR ---
Patient permission Patient gave nursing unit coordinator consent on 11/14/18 at 1400 to participate in care on 11/15/18
--- NOTE | 2018-11-14 15:56 | NUR ---
Patient was lying in bed and alert when I entered patient's room. Patient is a little emotional and states that he feels like he is dying and is not sure he is ready. This opened up a conversation about and dying. I mostly discussed the spiritual aspect of this topic and patient asked what the Bible says about the afterlife. I shared with patient traditional Biblical thought about God and heaven. Patient seemed genuinely more at peace. I listened empathically, provided companionship and prayer. Patient expressed gratitude for the visit and asked me to come back, next day.
--- NOTE | 2018-11-14 16:59 | NUR ---
END OF SHIFT SUMMARY ASSUMED CARE OF PT @0700. PT ON 4L NC, SPO2 90%. PT ALERT AND ORIENTED. LUNGS COARSE T/O. PT C/O ABD PAIN, STATES FEELING LIKE NEEDING TO HAVE BM BUT NOT FEEDLING LIKE HE COULD. PT HAS NOW HAD 2 BM'S. PT STATES PAIN LESSENS WITH BM PASSING. PATIENT'S EMOTIONAL STATE FRAGILE TODAY. PT ANXIOUS, CRIES WITH BRUSHING AGASINST TOES AND OFF AND ON T/O SHIFT. EFORTS HAVE BEEN TAKEN THIS SHIFT TO SIT WITH PATIENT AND TALK WITH HIM. PASTORAL CARE HAS MET WITH HIM WELL PALLIATIVE CARE. PT HAS STATED "I DON'T KNOW HOW TO KEEP GOING. I AM SO ANXIOUS, I DON'T WANT TO FREAK OUT." PT MEDICATED FOR PAIN WITH TYLENOL, ATIVAN 1 TIME ORDER FOR ANXIETY RECEIVED FROM . PT STATES FEELING CALMER NOW. STILL EMOTIONALLY FRAGILE. PT HAS BEEN COMPLIANT WITH WEARING BIPAP T/O SHIFT, 30% FI02. PT WAS OVERBREATHING BIPAP BUT HAS BEEN TOLERATING BETTER POST ATIVAN 1MG. PT NOW RESTING IN BED, LIGHTS DIM, TRYING TO REST. WILL CONTINUE TO MONITOR PT UNTIL SHIFT CHANGE.
--- NOTE | 2018-11-14 19:15 | NUR ---
Followed up with patient to discuss code status and possibly address hospice care. Pt appears fatigued and depressed. He is difficult to understand through the bipap. He is in pain, nursing is holding off on narcotics at this time due to the patient's constipation. Pt is withdrawn and not completely participating in the visit. He explains that he is tired and does not feel like talking. He reluctantly muted his TV when I came in and introduced myself. Will attempt to engage patient again in the future. Reviewed with pt's nurse. Pt has gotten a dose of ativan and some tylenol, as he just got it, reassessment is not appropriate yet. Will remain available.
--- NOTE | 2018-11-14 19:45 | NUR ---
PROVIDER CONTACTED PT REPORTING EXTREME PAIN RATING 10/10 THAT HAS NOT RELIEVED WITH ORDERED MEDICATIONS. MEAGAN CONNER CONTACTED AND ORDERS RECEIVED FOR ONE TIME DOSE OF FENTANYL 50 MCG. WILL INPUT ORDERS AND ADMINISTER.
[2018-11-15 04:13] LABS: BASOPHILS ABSOLUTE AUTO 0.01 K/mm3 (0.00-0.23); BASOPHILS PERCENT AUTO 0 % (0-2); EOSINOPHILS ABSOLUTE AUTO 0.03 K/mm3 (0.00-0.68); EOSINOPHILS PERCENT AUTO 0 % (0-6); Hematocrit 37.4 % (37.0-53.0); Hemoglobin 12.1 g/dL (13.5-17.5); IMMATURE GRAN ABSOLUTE AUTO 0.09 K/mm3 (0.00-0.10); IMMATURE GRAN PERCENT AUTO 1 % (0-1); LYMPHOCYTES ABSOLUTE AUTO 1.24 K/mm3 (0.84-5.20); LYMPHOCYTES PERCENT AUTO 16 % (21-46); MONOCYTES ABSOLUTE AUTO 0.42 K/mm3 (0.16-1.47); MONOCYTES PERCENT AUTO 6 % (4-13); Mean Corpuscular HGB Conc 32.4 g/dL (31.5-36.5); Mean Corpuscular Volume 99 fL (80-100); Mean Platelet Volume 9.2 fL (9.1-12.4); NEUTROPHILS ABSOLUTE AUTO 5.84 K/mm3 (1.96-9.15); NEUTROPHILS PERCENT AUTO 77 % (41-73); Platelet Count 224 K/mm3 (150-400); RDW Coefficient Variation 12.9 % (11.7-14.2); RDW Standard Deviation 46.3 fL (35.1-46.3); Red Blood Cell Count 3.78 M/mm3 (4.30-5.90); White Blood Cell Count 7.63 K/mm3 (4.00-11.30)
[2018-11-15 04:30] LABS: Albumin, Blood 2.9 g/dL (3.4-5.0); Anion Gap 5 mmol/L (6-16); Blood Urea Nitrogen 20 mg/dL (8-24); Bun/Creatinine Ratio 32.5 (12.0-20.0); CO2, Blood 39 mmol/L (21-32); Calcium, Blood 8.5 mg/dL (8.5-10.1); Chloride, Blood 82 mmol/L (98-108); Creatinine, Blood 0.62 mg/dL (0.60-1.20); Glomerular Filtration Rate >60 (60-); Glucose, Blood 156 mg/dL (70-99); Phosphorus, Blood 2.8 mg/dL (2.5-4.9); Potassium, Blood 4.3 mmol/L (3.5-5.5); Sodium, Blood 126 mmol/L (136-145)
--- NOTE | 2018-11-15 07:16 | NUR ---
SHIFT SUMMARY- PT HAS REMAINED AOX4 THROUGHOUT SHIFT. PLEASANT AND COOPERATIVE WITH CARE. PT WITH EPISODES OF HYPERTENSION THAT DECREASED WITH PRN MEDICATIONS. O2 SATS HAVE REMAINED BETWEEN 90-96% ON 4L VIA NASAL CANNULA OR BIPAP WITH SETTINGS OF 12/6 AND 30% FIO2, ALL OTHER VSS. PT CONTINUES TO BE ANXIOUS AND VERY TEARFUL THROUGHOUT THE NIGHT. REPORTS DIFFICULTY COPING WITH ILLNESS. PT REQUIRES EXTENSIVE EDUCATION AND REINFORCEMENT ON PROCESSES AND TREATMENT WELL CURRENT ILLNESS. PT AMBULATES WITH STANDBY ASSIST TO BEDSIDE COMMODE WITH MINIMAL DIFFICULTY. MEDICATED MULTIPLE TIMES FOR PAIN THROUGHOUT THE NIGHT THAT DECREASED WITH ORDERED MEDICATIONS. NO OTHER CHANGES FROM INITIAL ASSESSMENT. REPORT GIVEN TO DAYSHIFT RN. BED IN LOW POSITION, CALL LIGHT IN REACH.
[2018-11-15 08:59] LABS: PCO2 Arterial 57.8 mmHg (35-45); PO2 Arterial 62.7 mmHg (80-100); pH Blood Arterial 7.48 (7.35-7.45)
--- NOTE | 2018-11-15 08:59 | NUR ---
The pt tearful, states pain is 9/10 while sitting up on the side of bed finishing his breakfast. While carrying on conversation in this position, his eyes are closing and he states that he is so tired because he didn't sleep well last night. Per respiratory therapist, when she was in the room at 7 am the pt awakened and stated that he had "slept long and hard" last night. At this time Jovany is tearful, states that his pain is uncontrolled and that he wants something to "knock me out". States that he also needs something to take away his anxiety. Dr. Sibley explained that the risks of these medications are that they can cause . The hospitalist ordered an ABG at this time to determine if the drowsiness of the pt is from hypercapnea vs. sleep deprivation. Per noc shift RN report, the pt was able to tolerate the bipap while sleeping last night. Briefly discussed the option of hospice with the patient which would change the goal from treatment to comfort. The pt states that he is considering this. Palliative care is also seeing the patient this admission.
--- NOTE | 2018-11-15 09:09 | NUR ---
Call to report ABG results to Dr. Sibley at this time. new order for one time dose of ativan received. Pt is ok to sleep without the bipap just for now, this morning.
--- NOTE | 2018-11-15 15:27 | NUR ---
Met with Jovany in his room this afternoon. He c/o generalized body pain 9/10 "all over." He is sitting at the EOB, constantly shifting his weight around in an attempt to get comfortable. He is nearly in tears and states "Dying would be better than this." Emotional support given. Spoke with Dr. Sibley who states he will be in to evaluate Jovany shortly. Did discuss trilogy machine and HH vs. hospice at discharge. Jovany states he would like to try and feel better but if he can't he is willing to have hospice. He reports he has a history of nerve pain as well, although he states he cannot take neurotin as it effected his vision and lyrica also did not work for him. He currently states that his nerve pain is not bothering him. He states hydrocodone 10/325 at home 1 po q 8 hr which he states "Barely takes the edge off." Need to continue the discussion re: HH vs. hospice and change of code status once Jovany is more comfortable. Now is not the time when he is so uncomfortable to be making life changing decisions. PC will continue to follow.
--- NOTE | 2018-11-15 15:39 | NUR ---
Patient is sitting on the edge of his bed with his eyes closed and his head bobbing as he falls asleep then wakes himself up before his head drops to far. Patient's daughter Rosemary is bedside andstaes that he has slept much of the day is barely awake now. Patient acknowedged that I am present but is labored in communication. I talked with Rosemary at length about patient's daily life, about the care he receives, about his mental/emotional state and about the family. I listened empathically, encourage self care for daughter, provided a calming presence and provide prayer. Patient responded well to all interventions and then asked if he could be helped back to the lying down position in bed. I helped get patient comfortable then left.
--- NOTE | 2018-11-15 17:52 | NUR ---
END OF SHIFT SUMMARY PT HAS BEEN ALERT AND ORIENTED THROUGHOUT SHIFT. PT NOT COPING WELL WITH ANXIETY OR PAIN. PT HAS BEEN MEDICATED PER EMAR FOR PAIN AND ANXIETY. DR HAS BEEN CALLED, FENTANYL ORDERED 50MCG X1 DOSE, WILL ADMINISTER. PT'S DAUGHTER HAS BEEN IN ROOM T/O SHIFT. PASTORAL CARE AND PALLIATIVE CARE IN ROOM MULTIPLE TIMES. PT IN FRAGILE EMOTIONAL STATE. PT HAS CONTINUED TO KEEP BIPAP ON, 30% FIO2 SAYING IT HELPS HIM REST AND RELAX. DR HAS STATED THAT HE DOESN'T NEED TO STAY ON IT AND THAT NC O2 WOULD BE SUFFICIENT. PT HAS BEEN SWITCHING BETWEEN BIPAP AND NC TOLERATED. PT'S LUNGS COARSE T/O. PT'S DAUGHTER TALKED TO ABOUT THE POSSIBILITY OF HOSPICE CARE AND THE POSSIBLE BENEFITS THEY CAN SUPPLY FOR PAIN MANAGEMENT. PATIENTS DC BEING WORKED ON BY DISCHARGE PLANNERS AND PALLIATVE CARE. WILL CONTINUE TO MONITOR PT UNTIL SHIFT CHANGE.
--- NOTE | 2018-11-16 04:25 | NUR ---
SHIFT SUMMARY: PATIENT HAD PAIN MEDICATION X1 THIS SHIFT, STATD HE SLEPT BETTER THAN HE HAD IN A FEW DAYS. VSS, NO ISSUES NOTED, BED LOW AND LOCKED, CALL LIGHT WITHIN REACH.
--- NOTE | 2018-11-16 16:44 | NUR ---
END OF SHIFT SUMMARY ASSUMED CARE OF PT @0700. PT RESTING WITH BIPAP ON, FI02 30%. PT AWAKES ONCE THIS NURSE BEGINS TO TAKE VITALS AND START ASSESMENT. PT ALERT AND ORIENTED. PT APPEARS TO BE LESS ANXIOUS THIS AM THEN ASSESSED PREVIOUS SHIFT. PT C/O OF GENERALIZED PAIN, STATES CHRONIC PAIN. PLAN TO DC PATIENT THIS SHIFT. PER DR CUELLO, DC IS BEING HELD UP BY INSURANCE PAYING FOR TRILOGY. PT AND DAUGHTER AWARE OF THIS. PLANS ARE TO DC PT HOME WITH [facility]. HOME HEALTH HAS SEEN PT TODAY. PT HAS C/O ANXIETY BUT HAS STATED HE HAS FELT MUCH BETTER TODAY THAN HE HAS IN A FEW DAYS IN TERMS OF PAIN OR ANXIETY. PT HAS REMAINED ON BIPAP FOR MOST OF SHIFT WITH INTERMITTENT SHORT BREAKS ON 3L HUMIDIFIED HI FLOW. PT HAS TOLERATED EACH WELL. PT HAS BEEN UP TO CHAIR AND BACK TO BED A FEW TIMES. DISCHARGE PLANNERS CONTINUE TO BE ACTIVELY INVOLVED IN PATIENTS DISCHARGE. WILL CONTINUE TO MONITOR PT UNTIL SHIFT CHANGE.
[2018-11-17 04:45] LABS: Anion Gap 5 mmol/L (6-16); Blood Urea Nitrogen 17 mg/dL (8-24); Bun/Creatinine Ratio 23.8 (12.0-20.0); CO2, Blood 37 mmol/L (21-32); Calcium, Blood 8.4 mg/dL (8.5-10.1); Chloride, Blood 84 mmol/L (98-108); Creatinine, Blood 0.71 mg/dL (0.60-1.20); Glomerular Filtration Rate >60 (60-); Glucose, Blood 111 mg/dL (70-99); Potassium, Blood 4.4 mmol/L (3.5-5.5); Sodium, Blood 126 mmol/L (136-145)
--- NOTE | 2018-11-17 06:29 | NUR ---
SHIFT SUMMARY: PATIENTS SLEPT WELL THIS SHIFT, BIPAP ON ALL NIGHT, NO COMPLAINTS, VSS, BED LOW AND LOCKED.
--- NOTE | 2018-11-17 17:52 | NUR ---
SHIFT SUMMARY Assumed care of pt at 0700. Report recieved from Naima CORONEL. Pt on 2 LPM NC at time of report. Shift assessment completed. Dr Sibley in to see patient. Pt verbalizes desire to go home today. Pt educated that ability to go home depends on insurance coverage for Trilogy. Pt OOB to chair several times this shift. Flutter valve at bedside. Pt educated on use and demonstrated understanding of flutter valve use. Pt calls appropriately for assistance to get OOB. Bed in lowest position. Call light in reach. Pt denies need at this time.
--- NOTE | 2018-11-17 19:16 | NUR ---
UPDATE Pt able to have Trilogy delivered today. Call placed to Dr Sibley to update. Provider states plan to write discharge orders for the pt. Report given to oncoming BERNA Mcnamara, who will be completing the discharge.
== END 2018-11-17 20:15 | disposition home health service (06) | DRG 193 ==
LOC: ER 13:56 → PCU 14:51
PROVIDERS: Family Medicine; Internal Medicine; Internal Medicine Critical Care Medicine; ADMIT Hospitalist
PROC: 5A09457 Assistance with Respiratory Ventilation, 24-96 Consecutive Hours, Continuous Positive Airway Pressure (ICD-10-PCS; principal; 2018-11-11)
DX: J18.9 Pneumonia, unspecified organism (principal); J96.21 Acute and chronic respiratory failure with hypoxia; J96.22 Acute and chronic respiratory failure with hypercapnia; E66.2 Morbid (severe) obesity with alveolar hypoventilation; I50.32 Chronic diastolic (congestive) heart failure; J44.0 Chronic obstructive pulmonary disease with (acute) lower respiratory infection; J44.1 Chronic obstructive pulmonary disease with (acute) exacerbation; E87.1 Hypo-osmolality and hyponatremia; Z51.5 Encounter for palliative care; I11.0 Hypertensive heart disease with heart failure; E78.00 Pure hypercholesterolemia, unspecified; F17.210 Nicotine dependence, cigarettes, uncomplicated; G47.33 Obstructive sleep apnea (adult) (pediatric); Z91.19 Patient's noncompliance with other medical treatment and regimen; Z99.81 Dependence on supplemental oxygen; Z68.36 Body mass index [BMI] 36.0-36.9, adult
CPT/HCPCS: 36415; 36600; 71045; 74176; 80048; 80053; 80069; 82803; 85025; 93005; 93010; 94640; 94660; 94667; 94762; 96374; 97110; 97162; 97530; 99285-25; C8923; J0360; J1650; J2060; J2405; J2920; J2930; J3010; J7120; J7512; Q9957

== ENCOUNTER 2018-12-08 08:21 | Emergency (ER) | payer OTHER ==
[~2018-12-08] VITALS: Ht 175.3 cm; Wt 108.9 kg
[~2018-12-08 08:21] MED LIST changes: -Aspirin EC81 MG PO
[2018-12-08 09:21] LABS: BASOPHILS ABSOLUTE AUTO 0.02 K/mm3 (0.00-0.23); BASOPHILS PERCENT AUTO 0 % (0-2); EOSINOPHILS ABSOLUTE AUTO 0.13 K/mm3 (0.00-0.68); EOSINOPHILS PERCENT AUTO 2 % (0-6); Hematocrit 31.1 % (37.0-53.0); Hemoglobin 10.6 g/dL (13.5-17.5); IMMATURE GRAN PERCENT AUTO 3 % (0-1); LYMPHOCYTES ABSOLUTE AUTO 1.16 K/mm3 (0.84-5.20); LYMPHOCYTES PERCENT AUTO 20 % (21-46); MONOCYTES ABSOLUTE AUTO 0.61 K/mm3 (0.16-1.47); MONOCYTES PERCENT AUTO 11 % (4-13); Mean Corpuscular HGB Conc 34.1 g/dL (31.5-36.5); Mean Corpuscular Volume 94 fL (80-100); NEUTROPHILS ABSOLUTE AUTO 3.68 K/mm3 (1.96-9.15); NEUTROPHILS PERCENT AUTO 64 % (41-73); Platelet Count 167 K/mm3 (150-400); RDW Coefficient Variation 14.6 % (11.7-14.2); RDW Standard Deviation 50.1 fL (35.1-46.3); Red Blood Cell Count 3.31 M/mm3 (4.30-5.90)
[2018-12-08 09:55] LABS: Magnesium, Blood 1.7 mg/dL (1.6-2.4)
[2018-12-08 10:03] LABS: Alanine Aminotransfer (ALT/SGP 45 U/L (12-78); Albumin/Globulin Ratio 0.9 (0.8-1.8); Alk Phos 98 U/L (50-136); Anion Gap 10 mmol/L (6-16); Aspartate Aminotrans (AST/SGOT 24 U/L (12-37); Bilirubin, Total 0.5 mg/dL (0.1-1.0); Blood Urea Nitrogen 13 mg/dL (8-24); Bun/Creatinine Ratio 14.1 (12.0-20.0); CO2, Blood 30 mmol/L (21-32); Chloride, Blood 77 mmol/L (98-108); Creatinine, Blood 0.92 mg/dL (0.60-1.20); Globulin, Blood 3.3 g/dL (2.2-4.0); Glomerular Filtration Rate >60 (60-); Glucose, Blood 100 mg/dL (70-99); Potassium, Blood 5.1 mmol/L (3.5-5.5); Sodium, Blood 117 mmol/L (136-145); Total Protein, Blood 6.3 g/dL (6.4-8.2)
[2018-12-08 10:22] LABS: Source, Urine Voided
[2018-12-08 10:31] LABS: Bilirubin, Urine Neg (Neg); Blood, Urine Neg (Neg); Glucose Qualitative, Urine Neg (Neg); Ketones, Urine Neg (Neg); Leukocyte Esterase, Urine Neg (Neg); Nitrite, Urine Neg (Neg); Protein, Urine 2+ (Neg); Specific Gravity, Urine 1.005 (1.003-1.022); Urobilinogen, Urine NORM (Normal)
[2018-12-08 10:33] LABS: Appearance, Urine Clear (Clear); Color, Urine Yellow (P-Yellow)
[2018-12-08 10:42] LABS: Bacteria Not Seen /hpf; Red Blood Cells, Urine Not Seen /hpf (0-2); Squamous Epithelial Cells Few /hpf (Few); White Blood Cells, Urine Not Seen /hpf (0-5)
[2018-12-08] MEDS ORDERED: [UNRECOGNIZED DRUG - CODE] PO (11:26)
[2018-12-08] MEDS ORDERED: [UNRECOGNIZED DRUG - CODE] INH (11:28)
[2018-12-08] MEDS ORDERED: [UNRECOGNIZED DRUG - CODE] INH (11:31)
== END 2018-12-08 13:10 | disposition left against medical advice (07) ==
LOC: ER 08:21
PROVIDERS: Emergency Medicine
DX: E87.1 Hypo-osmolality and hyponatremia (principal); Z88.1 Allergy status to other antibiotic agents; Z88.8 Allergy status to other drugs, medicaments and biological substances; Z79.899 Other long term (current) drug therapy; Z79.82 Long term (current) use of aspirin; Z79.52 Long term (current) use of systemic steroids; I11.0 Hypertensive heart disease with heart failure; I50.9 Heart failure, unspecified; E78.00 Pure hypercholesterolemia, unspecified; E78.5 Hyperlipidemia, unspecified; F17.200 Nicotine dependence, unspecified, uncomplicated
CPT/HCPCS: 36415; 71046; 80053; 81001; 83735; 83880; 84439; 84443; 84484; 85025; 99283-25

== ENCOUNTER 2019-04-13 09:59 | Observation (INO) | payer OTHER ==
[~2019-04-13] VITALS: Ht 175.3 cm; Wt 121.6 kg
[~2019-04-13 09:59] MED LIST changes: +Aspir 8181 MG PO; +[UNRECOGNIZED DRUG - CODE] INH; +[UNRECOGNIZED DRUG - CODE] INH; +[UNRECOGNIZED DRUG - CODE] PO
[2019-04-13 10:55] LABS: BASOPHILS ABSOLUTE AUTO 0.03 K/mm3 (0.00-0.23); BASOPHILS PERCENT AUTO 0 % (0-2); EOSINOPHILS ABSOLUTE AUTO 0.28 K/mm3 (0.00-0.68); EOSINOPHILS PERCENT AUTO 4 % (0-6); Hematocrit 35.4 % (37.0-53.0); Hemoglobin 11.8 g/dL (13.5-17.5); IMMATURE GRAN ABSOLUTE AUTO 0.07 K/mm3 (0.00-0.10); IMMATURE GRAN PERCENT AUTO 1 % (0-1); LYMPHOCYTES ABSOLUTE AUTO 1.78 K/mm3 (0.84-5.20); LYMPHOCYTES PERCENT AUTO 23 % (21-46); MONOCYTES ABSOLUTE AUTO 0.62 K/mm3 (0.16-1.47); MONOCYTES PERCENT AUTO 8 % (4-13); Mean Corpuscular HGB 30.8 pg (26.0-34.0); Mean Corpuscular HGB Conc 33.3 g/dL (31.5-36.5); Mean Corpuscular Volume 92 fL (80-100); Mean Platelet Volume 8.9 fL (9.1-12.4); NEUTROPHILS ABSOLUTE AUTO 4.85 K/mm3 (1.96-9.15); NEUTROPHILS PERCENT AUTO 64 % (41-73); Platelet Count 201 K/mm3 (150-400); RDW Coefficient Variation 14.4 % (11.7-14.2); RDW Standard Deviation 48.4 fL (35.1-46.3); Red Blood Cell Count 3.83 M/mm3 (4.30-5.90); White Blood Cell Count 7.63 K/mm3 (4.00-11.30)
[2019-04-13 11:24] LABS: Alanine Aminotransfer (ALT/SGP 30 U/L (12-78); Albumin, Blood 3.4 g/dL (3.4-5.0); Alk Phos 71 U/L (50-136); Anion Gap 9 mmol/L (6-16); Aspartate Aminotrans (AST/SGOT 20 U/L (12-37); Bilirubin, Total 0.4 mg/dL (0.1-1.0); Blood Urea Nitrogen 23 mg/dL (8-24); Bun/Creatinine Ratio 20.4 (12.0-20.0); CO2, Blood 28 mmol/L (21-32); Calcium, Blood 8.8 mg/dL (8.5-10.1); Chloride, Blood 84 mmol/L (98-108); Creatinine, Blood 1.13 mg/dL (0.60-1.20); Globulin, Blood 3.3 g/dL (2.2-4.0); Glomerular Filtration Rate >60 (60-); Glucose, Blood 99 mg/dL (70-99); Potassium, Blood 5.2 mmol/L (3.5-5.5); Sodium, Blood 121 mmol/L (136-145); Total Protein, Blood 6.7 g/dL (6.4-8.2); Troponin I <0.015 ng/mL (0.000-0.040)
[2019-04-13] MEDS ORDERED: Bumetanide2 MG PO ×2 (12:00→13:30)
[2019-04-13] MEDS ORDERED: BUDE6HFA INH (13:32)
[2019-04-13 15:28] LABS: Albumin, Blood 3.5 g/dL (3.4-5.0); Anion Gap 4 mmol/L (6-16); Blood Urea Nitrogen 22 mg/dL (8-24); Bun/Creatinine Ratio 20.4 (12.0-20.0); CO2, Blood 32 mmol/L (21-32); Calcium, Blood 9.2 mg/dL (8.5-10.1); Chloride, Blood 84 mmol/L (98-108); Creatinine, Blood 1.08 mg/dL (0.60-1.20); Glomerular Filtration Rate >60 (60-); Glucose, Blood 172 mg/dL (70-99); Phosphorus, Blood 2.4 mg/dL (2.5-4.9); Potassium, Blood 4.7 mmol/L (3.5-5.5); Sodium, Blood 120 mmol/L (136-145)
[2019-04-13 18:30] LABS: Uric Acid, Blood 7.8 mg/dL (3.5-7.2)
--- NOTE | 2019-04-13 19:02 | NUR ---
SHIFT SUMMARY PATIENT PLEASANT. ALERT AND ORIENTED. NO ACUTE CONCERNS ACCORDING TO PATIENT. HE IS PLACED OBSERVATION STATUS. HE IS ON 3L O2 AT HOME. CURRENTLY HE IS RUNNING 3.5L O2 VIA NC. SBA TO THE BATHROOM. 24 HOUR URINE TO BE COLLECTED AT 1730 ON 04/14/19
--- NOTE | 2019-04-13 19:48 | NUR ---
BLADDER SCAN REPORTED BLADDER SCAN VALUE TO DR OSPINA. 525 ML, DENIES URGE TO VOID. DR MILLS ORDERS TO CONT WITH BUMEX, NO CHACKO. WCTM.
[2019-04-14 05:34] LABS: BASOPHILS ABSOLUTE AUTO 0.03 K/mm3 (0.00-0.23); BASOPHILS PERCENT AUTO 0 % (0-2); EOSINOPHILS PERCENT AUTO 0 % (0-6); Hematocrit 33.7 % (37.0-53.0); Hemoglobin 11.3 g/dL (13.5-17.5); IMMATURE GRAN ABSOLUTE AUTO 0.19 K/mm3 (0.00-0.10); IMMATURE GRAN PERCENT AUTO 1 % (0-1); LYMPHOCYTES PERCENT AUTO 5 % (21-46); MONOCYTES ABSOLUTE AUTO 0.48 K/mm3 (0.16-1.47); MONOCYTES PERCENT AUTO 3 % (4-13); Mean Corpuscular HGB 30.8 pg (26.0-34.0); Mean Corpuscular HGB Conc 33.5 g/dL (31.5-36.5); Mean Corpuscular Volume 92 fL (80-100); Mean Platelet Volume 9.1 fL (9.1-12.4); NEUTROPHILS ABSOLUTE AUTO 13.44 K/mm3 (1.96-9.15); NEUTROPHILS PERCENT AUTO 91 % (41-73); Platelet Count 213 K/mm3 (150-400); Red Blood Cell Count 3.67 M/mm3 (4.30-5.90); White Blood Cell Count 14.84 K/mm3 (4.00-11.30)
[2019-04-14 05:59] LABS: Albumin, Blood 3.4 g/dL (3.4-5.0); Anion Gap 8 mmol/L (6-16); Blood Urea Nitrogen 33 mg/dL (8-24); Bun/Creatinine Ratio 28.9 (12.0-20.0); CO2, Blood 30 mmol/L (21-32); Chloride, Blood 87 mmol/L (98-108); Creatinine, Blood 1.14 mg/dL (0.60-1.20); Glomerular Filtration Rate >60 (60-); Glucose, Blood 158 mg/dL (70-99); Potassium, Blood 4.8 mmol/L (3.5-5.5); Sodium, Blood 125 mmol/L (136-145); Troponin I <0.015 ng/mL (0.000-0.040)
--- NOTE | 2019-04-14 06:14 | NUR ---
SHIFT SUMMARY PT IS ON 3-4 L VIA NC, BASELINE HOME O2. CPAP AT NIGHT. PRN BREATHING TX. TELEMETRY IN PLACE, NSR c BBB IN THE 70s. 1L FR MAINTAINED. LS WHEEZE T/O, 1+ EDEMA TO BLE. PT RECIEVE SODIUM PHOS PIGGYBACK LAST NIGHT, RECIEVED BUMEX. HEAVY URINARY OUTPUT TONIGHT, CLEAR YELLOW URINE. 24 HR URINE IN PROGRESS, TO END 04/14 @ 1730. INDEPENDENT IN RM. [place] QID FOR CHRONIC BACK PAIN. PT REQUESTING ATIVAN, ORDER DECLINED. WILL CONT TO MONITOR AND PROVIDE CARE UNTIL PRESUMED BY ONCOMING RN.
--- NOTE | 2019-04-14 18:22 | NUR ---
PATIENT HAS BEEN UP IN CHAIR THIS SHIFT. HE BECOMES SOB QUICKLY AND REMAINS ON 3.5 L O2. HE IS PLEASANT AND COOPERATIVE WITH CARES. URINE SENT TO LAB PER ORDER AFTER 24 HOUR COLLECTION UP. HE REMAINS ON FLUID RESTRICTIONS AND IS HAVING A DIFFICULT TIME REMAINING COMPLIANT . HE IS ABLE TO AMBULATE TO THE RESTROOM WITH SBA. PAIN MANAGED WITH MEDS PER EMAR.
[2019-04-14 18:37] LABS: Protein, Urine Quantitative 18.7 mg/dL (0.0-11.9)
[2019-04-15 04:54] LABS: BASOPHILS ABSOLUTE AUTO 0.02 K/mm3 (0.00-0.23); BASOPHILS PERCENT AUTO 0 % (0-2); EOSINOPHILS ABSOLUTE AUTO 0.01 K/mm3 (0.00-0.68); EOSINOPHILS PERCENT AUTO 0 % (0-6); Hematocrit 35.1 % (37.0-53.0); Hemoglobin 11.5 g/dL (13.5-17.5); IMMATURE GRAN ABSOLUTE AUTO 0.09 K/mm3 (0.00-0.10); IMMATURE GRAN PERCENT AUTO 1 % (0-1); LYMPHOCYTES ABSOLUTE AUTO 1.37 K/mm3 (0.84-5.20); LYMPHOCYTES PERCENT AUTO 11 % (21-46); MONOCYTES ABSOLUTE AUTO 0.68 K/mm3 (0.16-1.47); MONOCYTES PERCENT AUTO 6 % (4-13); Mean Corpuscular HGB 31.4 pg (26.0-34.0); Mean Corpuscular HGB Conc 32.8 g/dL (31.5-36.5); Mean Platelet Volume 8.8 fL (9.1-12.4); NEUTROPHILS ABSOLUTE AUTO 10.26 K/mm3 (1.96-9.15); NEUTROPHILS PERCENT AUTO 83 % (41-73); Platelet Count 234 K/mm3 (150-400); RDW Coefficient Variation 14.7 % (11.7-14.2); RDW Standard Deviation 52.1 fL (35.1-46.3); Red Blood Cell Count 3.66 M/mm3 (4.30-5.90); White Blood Cell Count 12.43 K/mm3 (4.00-11.30)
[2019-04-15 04:57] LABS: Mean Corpuscular Volume 96 fL (80-100)
[2019-04-15 05:07] LABS: Magnesium, Blood 2.3 mg/dL (1.6-2.4)
[2019-04-15 05:08] LABS: Albumin, Blood 3.6 g/dL (3.4-5.0); Anion Gap 3 mmol/L (6-16); Blood Urea Nitrogen 34 mg/dL (8-24); Bun/Creatinine Ratio 29.6 (12.0-20.0); CO2, Blood 33 mmol/L (21-32); Calcium, Blood 9.4 mg/dL (8.5-10.1); Chloride, Blood 90 mmol/L (98-108); Creatinine, Blood 1.15 mg/dL (0.60-1.20); Glomerular Filtration Rate >60 (60-); Glucose, Blood 187 mg/dL (70-99); Phosphorus, Blood 3.7 mg/dL (2.5-4.9); Sodium, Blood 126 mmol/L (136-145)
--- NOTE | 2019-04-15 06:54 | NUR ---
SHIFT SUMMARY PT WAS ABLE TO SLEEP T/O NIGHT. WORE BIPAP AND ASKED FOR BREATHING TX PRN FOR SOB. A/O INDEPENDENT IN ROOM. CALL LIGHT IN REACH.
[2019-04-15] MEDS ORDERED: Bumetanide2 MG PO (14:13)
[2019-04-15] MEDS ORDERED: LOSA25 PO (14:15)
[2019-04-15] MEDS ORDERED: ACET325 PO (14:16)
[2019-04-15] MEDS ORDERED: ALBU90OI INH (14:18)
[2019-04-15] MEDS ORDERED: AZIT250 PO (14:19)
[2019-04-15] MEDS ORDERED: ONDA4ODT MM (14:20)
[2019-04-15] MEDS ORDERED: Nicoderm Cq1 EAC1 TOP (14:20)
[2019-04-15] MEDS ORDERED: Prednisone10 MG PO (14:21)
[2019-04-15] MEDS ORDERED: Florastor250 MG PO (14:22)
[2019-04-15] MEDS ORDERED: TAMS.4ER PO (14:23)
--- NOTE | 2019-04-15 14:48 | NUR ---
1440 PATIENT HAD IV REMOVED PRIOR TO DISCHARGE. NO SS OF INFECTION NOTED. NURSE WENT OVER DISCHARGE INSTRUCTIONS WITH PATIENT AND FAMILY. EDUCATED REGARDING NEW MEDS AND INSTRUCTED TO FOLLOW UP WITH PCP AND END TRIMMER. PATIENT AND FAMILY PACKED BELONGINGS. PATIENT TAKEN DOWN BY WC TO CAR AND TAKEN HOME BY FAMILY. MEDS FAXED TO [facility].
== END 2019-04-15 14:41 | disposition home or self-care (01) ==
LOC: ER 09:59 → MEDS 10:00
PROVIDERS: Emergency Medicine; Internal Medicine Nephrology; ADMIT Family Medicine
DX: I13.0 Hypertensive heart and chronic kidney disease with heart failure and stage 1 through stage 4 chronic kidney disease, or unspecified chronic kidney disease (principal); I50.33 Acute on chronic diastolic (congestive) heart failure; N18.9 Chronic kidney disease, unspecified; D63.1 Anemia in chronic kidney disease; J96.20 Acute and chronic respiratory failure, unspecified whether with hypoxia or hypercapnia; E87.1 Hypo-osmolality and hyponatremia; J44.9 Chronic obstructive pulmonary disease, unspecified; M10.9 Gout, unspecified; F41.9 Anxiety disorder, unspecified; E78.5 Hyperlipidemia, unspecified; F17.210 Nicotine dependence, cigarettes, uncomplicated; E66.2 Morbid (severe) obesity with alveolar hypoventilation; Z79.899 Other long term (current) drug therapy; Z79.82 Long term (current) use of aspirin; Z88.8 Allergy status to other drugs, medicaments and biological substances; Z88.1 Allergy status to other antibiotic agents; Z99.89 Dependence on other enabling machines and devices
CPT/HCPCS: 36415; 71046; 76770; 80053; 80069; 81050; 83735; 83880; 84156; 84295; 84443; 84484; 84550; 85025; 93005; 93010; 93308; 94640; 94660; 94760; 94762; 96365; 96366; 96372; 96374; 96375; 96376; 97116; 97162; 97165; 97530; 99285-25; G0103; G0378; J1650; J2930; J7060; J7512

== ENCOUNTER 2019-06-23 13:48 | Observation (INO) | payer OTHER ==
[~2019-06-23] VITALS: Ht 175.3 cm; Wt 117.9 kg
[~2019-06-23 13:48] MED LIST changes: +AZIT250 PO; +BUDE6HFA INH; +Bumetanide2 MG PO; +Florastor250 MG PO; +Nicoderm Cq1 EAC1 TOP; +ONDA4ODT MM; +Prednisone10 MG PO; +TAMS.4ER PO
[2019-06-23 14:17] LABS: PCO2 Arterial 47.8 mmHg (35-45); PO2 Arterial 54.1 mmHg (80-100); pH Blood Arterial 7.47 (7.35-7.45)
[2019-06-23 14:36] LABS: BASOPHILS ABSOLUTE AUTO 0.03 K/mm3 (0.00-0.23); BASOPHILS PERCENT AUTO 0 % (0-2); EOSINOPHILS ABSOLUTE AUTO 0.07 K/mm3 (0.00-0.68); EOSINOPHILS PERCENT AUTO 1 % (0-6); Hematocrit 34.1 % (37.0-53.0); Hemoglobin 11.4 g/dL (13.5-17.5); IMMATURE GRAN ABSOLUTE AUTO 0.08 K/mm3 (0.00-0.10); IMMATURE GRAN PERCENT AUTO 1 % (0-1); LYMPHOCYTES ABSOLUTE AUTO 0.93 K/mm3 (0.84-5.20); LYMPHOCYTES PERCENT AUTO 10 % (21-46); MONOCYTES ABSOLUTE AUTO 0.67 K/mm3 (0.16-1.47); MONOCYTES PERCENT AUTO 7 % (4-13); Mean Corpuscular HGB 32.7 pg (26.0-34.0); Mean Corpuscular HGB Conc 33.4 g/dL (31.5-36.5); Mean Corpuscular Volume 98 fL (80-100); Mean Platelet Volume 8.6 fL (9.1-12.4); NEUTROPHILS ABSOLUTE AUTO 7.75 K/mm3 (1.96-9.15); NEUTROPHILS PERCENT AUTO 81 % (41-73); Platelet Count 191 K/mm3 (150-400); RDW Coefficient Variation 14.9 % (11.7-14.2); RDW Standard Deviation 53.3 fL (35.1-46.3); Red Blood Cell Count 3.49 M/mm3 (4.30-5.90); White Blood Cell Count 9.53 K/mm3 (4.00-11.30)
[2019-06-23 15:03] LABS: Alanine Aminotransfer (ALT/SGP 38 U/L (12-78); Albumin, Blood 3.6 g/dL (3.4-5.0); Alk Phos 78 U/L (50-136); Anion Gap 8 mmol/L (6-16); Aspartate Aminotrans (AST/SGOT 40 U/L (12-37); Bilirubin, Total 0.6 mg/dL (0.1-1.0); Blood Urea Nitrogen 13 mg/dL (8-24); Bun/Creatinine Ratio 12.7 (12.0-20.0); CO2, Blood 34 mmol/L (21-32); Calcium, Blood 9.3 mg/dL (8.5-10.1); Chloride, Blood 82 mmol/L (98-108); Creatinine, Blood 1.02 mg/dL (0.60-1.20); Globulin, Blood 3.6 g/dL (2.2-4.0); Glomerular Filtration Rate >60 (60-); Glucose, Blood 111 mg/dL (70-99); Potassium, Blood 4.2 mmol/L (3.5-5.5); Sodium, Blood 124 mmol/L (136-145); Total Protein, Blood 7.2 g/dL (6.4-8.2)
[2019-06-23] MEDS ORDERED: FLUT1DIS8 INH (17:35)
[2019-06-23] MEDS ORDERED: INCRUSE ELLI62.5 MCG INH (17:40)
--- NOTE | 2019-06-23 18:59 | NUR ---
RECIEVED REPORT FROM LUCA WHITE RN, AT 1824. PATIENT ARRIVED TO ROOM 343 AT 1840 BY STRETCHER. PATIENT TRANSFERS TO HOSPITAL BED BY ASSIST X3. RESP PANEL COLLECTED AND SENT TO LAB. PATIENT COVERED WITH 2 WARM BLANKETS, C/O BEING COLD. WILL GIVE REPORT TO ON-COMING RN.
[2019-06-23 20:01] LABS: Adenovirus Not Detected (NOT DETECT); Bordetella pertussis Not Detected (NOT DETECT); Chlamydophila pneumoniae Not Detected (NOT DETECT); Coronavirus 229E Not Detected (NOT DETECT); Coronavirus HKU1 Not Detected (NOT DETECT); Coronavirus NL63 Not Detected (NOT DETECT); Coronavirus OC43 Not Detected (NOT DETECT); Human Metapneumovirus Not Detected (NOT DETECT); Human Rhinovirus/Enterovirus Not Detected (NOT DETECT); Influenza A Not Detected (NOT DETECT); Influenza A/2009-H1 Not Detected (NOT DETECT); Influenza A/H1 Not Detected (NOT DETECT); Influenza A/H3 Not Detected (NOT DETECT); Influenza B Not Detected (NOT DETECT); Mycoplasma pneumoniae Not Detected (NOT DETECT); Parainfluenza Virus 1 Not Detected (NOT DETECT); Parainfluenza Virus 2 Not Detected (NOT DETECT); Parainfluenza Virus 3 Not Detected (NOT DETECT); Parainfluenza Virus 4 Not Detected (NOT DETECT); Respiratory Syncytial Virus Not Detected (NOT DETECT)
[2019-06-24 05:07] LABS: Anion Gap 4 mmol/L (6-16); Blood Urea Nitrogen 15 mg/dL (8-24); Bun/Creatinine Ratio 13.8 (12.0-20.0); CO2, Blood 34 mmol/L (21-32); Calcium, Blood 8.9 mg/dL (8.5-10.1); Chloride, Blood 85 mmol/L (98-108); Creatinine, Blood 1.09 mg/dL (0.60-1.20); Glomerular Filtration Rate >60 (60-); Glucose, Blood 163 mg/dL (70-99); Sodium, Blood 123 mmol/L (136-145)
--- NOTE | 2019-06-24 08:06 | NUR ---
SUMMARY PT C/O CONTINUED PAIN TONIGHT. INITIAL PAIN MED ORDER WAS QID WITH LAST DOSE OF NORCO BEING SCHEDULED FOR 9 PM. PT REPORTED TAKING MED Q 6 HR AT HOME. REQUESTED CHANGE TO ALLOW FOR ADDITIONAL PAIN PILL THIS SHIFT. I CALLED AND ORDER WAS CHANGED. PT HAS RECEIVED 3 TOTAL DOSES THIS SHIFT. PTS SODIUM LEVEL CONTINUED LOW 124 THIS AM. I CALLED AND NOTIFIED DR CUELLO. PT ALERT ORIENTED AND SITTING IN CHAIR THIS AM.
[2019-06-24] MEDS ORDERED: AMOCLA875 PO (11:51)
[2019-06-24] MEDS ORDERED: BENZ100A PO (11:52)
[2019-06-24] MEDS ORDERED: ROBITUSSIN COU237 ML PO (11:54)
--- NOTE | 2019-06-24 12:41 | NUR ---
PT DISCHARGED PT DISCHARGED IN STABLE CONDITION WITH VSS. PT & DAUGHTER EDUCATED ON DC INSTRUCTIONS, NEW MEDS, & FOLLOW UP APPOINTMENTS. NO OTHER CHANGES IN ASSESSMENT PRIOR TO DC. PT WHEELED OUT BY THIS RN & DRIVEN HOME BY DAUGHTER.
== END 2019-06-24 12:32 | disposition home health service (06) ==
LOC: ER 13:48 → MEDS 13:49
PROVIDERS: Physician Assistant; ADMIT Internal Medicine
DX: J96.21 Acute and chronic respiratory failure with hypoxia (principal); J96.22 Acute and chronic respiratory failure with hypercapnia; J44.1 Chronic obstructive pulmonary disease with (acute) exacerbation; J20.9 Acute bronchitis, unspecified; J44.0 Chronic obstructive pulmonary disease with (acute) lower respiratory infection; I11.0 Hypertensive heart disease with heart failure; I50.32 Chronic diastolic (congestive) heart failure; E78.5 Hyperlipidemia, unspecified; E87.1 Hypo-osmolality and hyponatremia; M10.9 Gout, unspecified; F17.210 Nicotine dependence, cigarettes, uncomplicated; N40.0 Benign prostatic hyperplasia without lower urinary tract symptoms; S50.02XA Contusion of left elbow, initial encounter; S90.112A Contusion of left great toe without damage to nail, initial encounter; E66.2 Morbid (severe) obesity with alveolar hypoventilation; Z68.38 Body mass index [BMI] 38.0-38.9, adult; Z88.1 Allergy status to other antibiotic agents; Z88.8 Allergy status to other drugs, medicaments and biological substances; Z79.82 Long term (current) use of aspirin; Z79.51 Long term (current) use of inhaled steroids; Z79.899 Other long term (current) drug therapy; Z99.81 Dependence on supplemental oxygen; Z99.89 Dependence on other enabling machines and devices; Z96.649 Presence of unspecified artificial hip joint; Z90.49 Acquired absence of other specified parts of digestive tract; W19.XXXA Unspecified fall, initial encounter
CPT/HCPCS: 0099U; 36415; 36600; 71046; 71260; 80048; 80053; 82803; 83880; 84484; 85025; 93005; 93010; 94640; 94660; 94762; 96372; 96374; 96376; 97162; 97530; 99285-25; G0378; J1650; J2920; Q9967

== ENCOUNTER 2019-08-04 11:23 | Emergency (ER) | payer OTHER ==
[~2019-08-04] VITALS: Ht 175.3 cm; Wt 120.7 kg
[~2019-08-04 11:23] MED LIST changes: +AMOCLA875 PO; +BENZ100A PO; +INCRUSE ELLI62.5 MCG INH; +ROBITUSSIN COU237 ML PO
[2019-08-04 11:48] LABS: PCO2 Arterial 55.2 mmHg (35-45); PO2 Arterial 95.3 mmHg (80-100)
[2019-08-04 12:01] LABS: Alanine Aminotransfer (ALT/SGP 31 U/L (12-78); Albumin, Blood 3.3 g/dL (3.4-5.0); Albumin/Globulin Ratio 0.8 (0.8-1.8); Alk Phos 94 U/L (50-136); Anion Gap 6 mmol/L (6-16); Aspartate Aminotrans (AST/SGOT 15 U/L (12-37); BASOPHILS ABSOLUTE AUTO 0.04 K/mm3 (0.00-0.23); BASOPHILS PERCENT AUTO 0 % (0-2); Bilirubin, Total 0.4 mg/dL (0.1-1.0); Blood Urea Nitrogen 18 mg/dL (8-24); CO2, Blood 35 mmol/L (21-32); Calcium, Blood 9.2 mg/dL (8.5-10.1); Chloride, Blood 80 mmol/L (98-108); EOSINOPHILS ABSOLUTE AUTO 0.19 K/mm3 (0.00-0.68); EOSINOPHILS PERCENT AUTO 2 % (0-6); Glomerular Filtration Rate >60 (60-); Glucose, Blood 148 mg/dL (70-99); Hematocrit 34.5 % (37.0-53.0); Hemoglobin 11.4 g/dL (13.5-17.5); IMMATURE GRAN ABSOLUTE AUTO 0.09 K/mm3 (0.00-0.10); IMMATURE GRAN PERCENT AUTO 1 % (0-1); LYMPHOCYTES ABSOLUTE AUTO 1.14 K/mm3 (0.84-5.20); LYMPHOCYTES PERCENT AUTO 11 % (21-46); MONOCYTES ABSOLUTE AUTO 0.53 K/mm3 (0.16-1.47); MONOCYTES PERCENT AUTO 5 % (4-13); Mean Corpuscular HGB 32.4 pg (26.0-34.0); Mean Corpuscular Volume 98 fL (80-100); Mean Platelet Volume 8.8 fL (9.1-12.4); NEUTROPHILS ABSOLUTE AUTO 8.02 K/mm3 (1.96-9.15); NEUTROPHILS PERCENT AUTO 80 % (41-73); Platelet Count 233 K/mm3 (150-400); Potassium, Blood 5.3 mmol/L (3.5-5.5); RDW Coefficient Variation 14.5 % (11.7-14.2); RDW Standard Deviation 52.2 fL (35.1-46.3); Red Blood Cell Count 3.52 M/mm3 (4.30-5.90); Sodium, Blood 121 mmol/L (136-145); Total Protein, Blood 7.3 g/dL (6.4-8.2); White Blood Cell Count 10.01 K/mm3 (4.00-11.30)
[2019-08-04 12:04] LABS: Troponin I <0.015 ng/mL (0.000-0.040)
[2019-08-04 12:23] LABS: Influenza A Negative (NEGATIVE); Influenza B Negative (NEGATIVE)
[2019-08-04] MEDS ORDERED: Prednisone20 MG PO (13:21)
[2019-08-04] MEDS ORDERED: Zithromax250 MG PO (13:21)
== END 2019-08-04 14:39 | disposition home or self-care (01) ==
LOC: ER 11:23
PROVIDERS: Emergency Medicine
DX: J44.1 Chronic obstructive pulmonary disease with (acute) exacerbation (principal); R60.0 Localized edema; M54.5 Low back pain; G89.29 Other chronic pain; I11.0 Hypertensive heart disease with heart failure; I50.32 Chronic diastolic (congestive) heart failure; I27.20 Pulmonary hypertension, unspecified; F17.210 Nicotine dependence, cigarettes, uncomplicated; E78.5 Hyperlipidemia, unspecified; Z88.8 Allergy status to other drugs, medicaments and biological substances; Z88.1 Allergy status to other antibiotic agents; Z79.899 Other long term (current) drug therapy
CPT/HCPCS: 36415; 36600; 71045; 80053; 82803; 83605; 83880; 84484; 85025; 87040; 87804; 93005; 93010; 94644; 96361; 96365; 96375; 99285-25; J0456; J0696; J2930; J7030; J7050

== ENCOUNTER 2019-08-13 04:08 | Inpatient (IN) | payer OTHER ==
[~2019-08-13] VITALS: Ht 175.3 cm; Wt 121.8 kg
[~2019-08-13 04:08] MED LIST changes: +Prednisone20 MG PO
[2019-08-13 04:37] LABS: BASOPHILS ABSOLUTE AUTO 0.02 K/mm3 (0.00-0.23); BASOPHILS PERCENT AUTO 0 % (0-2); EOSINOPHILS ABSOLUTE AUTO 0.15 K/mm3 (0.00-0.68); EOSINOPHILS PERCENT AUTO 1 % (0-6); Hematocrit 33.3 % (37.0-53.0); Hemoglobin 10.8 g/dL (13.5-17.5); IMMATURE GRAN ABSOLUTE AUTO 0.23 K/mm3 (0.00-0.10); IMMATURE GRAN PERCENT AUTO 2 % (0-1); LYMPHOCYTES ABSOLUTE AUTO 1.19 K/mm3 (0.84-5.20); LYMPHOCYTES PERCENT AUTO 10 % (21-46); MONOCYTES ABSOLUTE AUTO 0.72 K/mm3 (0.16-1.47); MONOCYTES PERCENT AUTO 6 % (4-13); Mean Corpuscular HGB 31.6 pg (26.0-34.0); Mean Corpuscular HGB Conc 32.4 g/dL (31.5-36.5); Mean Corpuscular Volume 97 fL (80-100); Mean Platelet Volume 9.3 fL (9.1-12.4); NEUTROPHILS PERCENT AUTO 81 % (41-73); Platelet Count 177 K/mm3 (150-400); RDW Coefficient Variation 14.3 % (11.7-14.2); RDW Standard Deviation 51.6 fL (35.1-46.3); Red Blood Cell Count 3.42 M/mm3 (4.30-5.90); White Blood Cell Count 12.21 K/mm3 (4.00-11.30)
[2019-08-13 04:58] LABS: Alanine Aminotransfer (ALT/SGP 37 U/L (12-78); Albumin/Globulin Ratio 0.8 (0.8-1.8); Alk Phos 76 U/L (50-136); Anion Gap 6 mmol/L (6-16); Aspartate Aminotrans (AST/SGOT 28 U/L (12-37); Bilirubin, Total 0.5 mg/dL (0.1-1.0); Blood Urea Nitrogen 38 mg/dL (8-24); CO2, Blood 31 mmol/L (21-32); Calcium, Blood 8.8 mg/dL (8.5-10.1); Chloride, Blood 84 mmol/L (98-108); Creatinine, Blood 1.65 mg/dL (0.60-1.20); Globulin, Blood 3.8 g/dL (2.2-4.0); Glomerular Filtration Rate 44 (60-); Glucose, Blood 137 mg/dL (70-99); Potassium, Blood 5.5 mmol/L (3.5-5.5); Sodium, Blood 121 mmol/L (136-145); Total Protein, Blood 6.8 g/dL (6.4-8.2); Troponin I <0.015 ng/mL (0.000-0.040)
[2019-08-13] MEDS ORDERED: OXYC10TA19 PO (17:21)
[2019-08-14 05:13] LABS: Albumin, Blood 2.8 g/dL (3.4-5.0); Anion Gap 7 mmol/L (6-16); Blood Urea Nitrogen 39 mg/dL (8-24); Bun/Creatinine Ratio 30.2 (12.0-20.0); CO2, Blood 33 mmol/L (21-32); Calcium, Blood 9.1 mg/dL (8.5-10.1); Chloride, Blood 87 mmol/L (98-108); Creatinine, Blood 1.29 mg/dL (0.60-1.20); Glomerular Filtration Rate 59 (60-); Glucose, Blood 176 mg/dL (70-99); Phosphorus, Blood 2.9 mg/dL (2.5-4.9); Potassium, Blood 4.5 mmol/L (3.5-5.5); Sodium, Blood 127 mmol/L (136-145)
[2019-08-15 05:00] LABS: Hematocrit 29.2 % (37.0-53.0); Hemoglobin 9.2 g/dL (13.5-17.5); Mean Corpuscular HGB 31.2 pg (26.0-34.0); Mean Corpuscular HGB Conc 31.5 g/dL (31.5-36.5); Mean Corpuscular Volume 99 fL (80-100); Mean Platelet Volume 9.5 fL (9.1-12.4); Platelet Count 236 K/mm3 (150-400); RDW Coefficient Variation 14.2 % (11.7-14.2); RDW Standard Deviation 51.5 fL (35.1-46.3); Red Blood Cell Count 2.95 M/mm3 (4.30-5.90); White Blood Cell Count 11.94 K/mm3 (4.00-11.30)
[2019-08-15 05:28] LABS: Anion Gap 7 mmol/L (6-16); Blood Urea Nitrogen 37 mg/dL (8-24); Bun/Creatinine Ratio 32.5 (12.0-20.0); CO2, Blood 34 mmol/L (21-32); Calcium, Blood 9.2 mg/dL (8.5-10.1); Chloride, Blood 88 mmol/L (98-108); Creatinine, Blood 1.14 mg/dL (0.60-1.20); Glomerular Filtration Rate >60 (60-); Glucose, Blood 157 mg/dL (70-99); Potassium, Blood 4.4 mmol/L (3.5-5.5); Sodium, Blood 129 mmol/L (136-145)
[2019-08-15] MEDS ORDERED: PRED20 PO (11:35)
[2019-08-15] MEDS ORDERED: DOXY100 PO (11:37)
[2019-08-15] MEDS ORDERED: METF500C PO (11:37)
== END 2019-08-15 12:44 | disposition home health service (06) | DRG 602 ==
LOC: ER 04:08 → MEDS 04:09 → ENPENDDIS 08-15 09:44 → MEDS 08-15 12:44
PROVIDERS: Emergency Medicine; Internal Medicine; ADMIT Internal Medicine
DX: L03.116 Cellulitis of left lower limb (principal); I50.33 Acute on chronic diastolic (congestive) heart failure; E87.1 Hypo-osmolality and hyponatremia; E66.2 Morbid (severe) obesity with alveolar hypoventilation; N17.9 Acute kidney failure, unspecified; J44.1 Chronic obstructive pulmonary disease with (acute) exacerbation; F11.20 Opioid dependence, uncomplicated; I50.32 Chronic diastolic (congestive) heart failure; I11.0 Hypertensive heart disease with heart failure; L03.115 Cellulitis of right lower limb; E78.00 Pure hypercholesterolemia, unspecified; M10.9 Gout, unspecified; F17.210 Nicotine dependence, cigarettes, uncomplicated; I27.20 Pulmonary hypertension, unspecified; I87.2 Venous insufficiency (chronic) (peripheral); Z68.39 Body mass index [BMI] 39.0-39.9, adult; E11.40 Type 2 diabetes mellitus with diabetic neuropathy, unspecified
CPT/HCPCS: 36415; 71046; 80048; 80053; 80069; 82947; 83880; 84484; 85025; 85027; 87040; 93005; 93010; 94640; 94660; 94760; 94762; 96365; 96366; 96372; 96375; 96376; 97116; 97161; 97166; 97530; 97535; 98960; 99285-25; A9270; G0378; J0692; J1650; J3010; J7050; J7512

== ENCOUNTER 2019-09-06 15:25 | Inpatient (IN) | payer OTHER ==
[~2019-09-06] VITALS: Ht 175.3 cm; Wt 120.6 kg
[~2019-09-06 15:25] MED LIST changes: +METF500C PO; +OXYC10TA19 PO
[2019-09-06 16:32] LABS: BASOPHILS ABSOLUTE AUTO 0.02 K/mm3 (0.00-0.23); BASOPHILS PERCENT AUTO 0 % (0-2); EOSINOPHILS ABSOLUTE AUTO 0.22 K/mm3 (0.00-0.68); EOSINOPHILS PERCENT AUTO 3 % (0-6); Hematocrit 34.6 % (37.0-53.0); Hemoglobin 10.9 g/dL (13.5-17.5); IMMATURE GRAN ABSOLUTE AUTO 0.06 K/mm3 (0.00-0.10); IMMATURE GRAN PERCENT AUTO 1 % (0-1); LYMPHOCYTES ABSOLUTE AUTO 1.39 K/mm3 (0.84-5.20); LYMPHOCYTES PERCENT AUTO 17 % (21-46); MONOCYTES ABSOLUTE AUTO 0.53 K/mm3 (0.16-1.47); MONOCYTES PERCENT AUTO 7 % (4-13); Mean Corpuscular HGB 31.5 pg (26.0-34.0); Mean Corpuscular HGB Conc 31.5 g/dL (31.5-36.5); Mean Corpuscular Volume 100 fL (80-100); Mean Platelet Volume 9.1 fL (9.1-12.4); NEUTROPHILS ABSOLUTE AUTO 5.81 K/mm3 (1.96-9.15); NEUTROPHILS PERCENT AUTO 73 % (41-73); Platelet Count 255 K/mm3 (150-400); RDW Coefficient Variation 15.4 % (11.7-14.2); RDW Standard Deviation 55.9 fL (35.1-46.3); Red Blood Cell Count 3.46 M/mm3 (4.30-5.90); White Blood Cell Count 8.03 K/mm3 (4.00-11.30)
[2019-09-06 16:54] LABS: Alanine Aminotransfer (ALT/SGP 37 U/L (12-78); Albumin, Blood 3.2 g/dL (3.4-5.0); Albumin/Globulin Ratio 0.8 (0.8-1.8); Alk Phos 84 U/L (50-136); Anion Gap 5 mmol/L (6-16); Aspartate Aminotrans (AST/SGOT 30 U/L (12-37); Bilirubin, Total 0.4 mg/dL (0.1-1.0); Blood Urea Nitrogen 14 mg/dL (8-24); Bun/Creatinine Ratio 14.1 (12.0-20.0); CO2, Blood 35 mmol/L (21-32); Calcium, Blood 9.3 mg/dL (8.5-10.1); Chloride, Blood 86 mmol/L (98-108); Creatinine, Blood 0.99 mg/dL (0.60-1.20); Globulin, Blood 3.9 g/dL (2.2-4.0); Glomerular Filtration Rate >60 (60-); Glucose, Blood 131 mg/dL (70-99); Potassium, Blood 4.3 mmol/L (3.5-5.5); Sodium, Blood 126 mmol/L (136-145); Total Protein, Blood 7.1 g/dL (6.4-8.2); Troponin I <0.015 ng/mL (0.000-0.040)
[2019-09-06 19:31] LABS: Base Excess Venous 14.2 mmol/L; PCO2 Venous 60.5 mmHg (38-42); PO2 Venous 26.1 mmHg (38-42); pH Blood Venous 7.42 (7.34-7.37)
--- NOTE | 2019-09-07 05:20 | NUR ---
SHIFT SUMMARY PT CONTINUED TO HAVE PERIODS OF SOB. SOB INCREASED WITH ANY EXERTION. PT REQUESTED RT TX'S FREQUENTLY. PT HAS RED PAINFUL BLE'S. PT STATES HIS LEGS ALWAYS HURT. PT IS ANXIOUS AND DR. BRAMBILA ORDERED MELATONIN. PT HAS NOT SLEPT AND IS HAVING DIFFICULTY GETTING COMFORTABLE. PT AWAKE WATCHING TV. CALL LIGHT IN REACH
--- NOTE | 2019-09-07 19:07 | NUR ---
SHIFT SUMMARY. A&OX4, SBA WITH CANE TO CHAIR, PT CALLS APPROPRIATLEY, NO SAFETY CONCERNS. LUNGS CLEAR ALTHOUGH DIM, SHALLOW BREATHING, CONTINUES WITH 4L O2 NC, 3L IS BASELINE PER PT. PT WITH CHRONIC BACK, BUE, BLE PAIN, PAIN MANAGED WELL WITH CURRENT ORDERS. NO N/V. PT HAS TAXI VOUCHER ON CHART FOR TIME OF D/C. NO NEW CHANGES OR CONCERNS.
--- NOTE | 2019-09-08 04:10 | NUR ---
SHIFT SUMMARY: VSS. AFEB. A/OX4. COMMUNICATES NEEDS. REPORTING PAIN 7-9/10 IN BLE, BUE, AND BACK THROUGHOUT THE NIGHT. PRN OXYCODONE ADMINISTERED PER ORDERS. PT REMAINED UP IN RECLINER ALL NIGHT. INTERMITTENTLY RAISING AND LOWERING LE WITH THE FOOT REST. 02 SATS 94% ON 4 L VIA NC. EXPIRATORY WHEEZE AUSCULTATED IN R MID AND LOWER LOBE. SOB IMPROVES WITH NEB TX. BLE PAINFUL AND PT JUMPY WITH LIGHT TOUCH. CAP REFILL 5 SEC IN BLE. +1 EDEMA BLE. NO ACUTE CHANGES. WILL CONT TO MONITOR.
[2019-09-08 06:44] LABS: BASOPHILS ABSOLUTE AUTO 0.01 K/mm3 (0.00-0.23); BASOPHILS PERCENT AUTO 0 % (0-2); EOSINOPHILS ABSOLUTE AUTO 0.01 K/mm3 (0.00-0.68); EOSINOPHILS PERCENT AUTO 0 % (0-6); Hematocrit 31.4 % (37.0-53.0); Hemoglobin 9.8 g/dL (13.5-17.5); IMMATURE GRAN ABSOLUTE AUTO 0.11 K/mm3 (0.00-0.10); IMMATURE GRAN PERCENT AUTO 1 % (0-1); LYMPHOCYTES PERCENT AUTO 10 % (21-46); MONOCYTES ABSOLUTE AUTO 0.75 K/mm3 (0.16-1.47); MONOCYTES PERCENT AUTO 6 % (4-13); Mean Corpuscular HGB Conc 31.2 g/dL (31.5-36.5); Mean Corpuscular Volume 99 fL (80-100); Mean Platelet Volume 8.8 fL (9.1-12.4); NEUTROPHILS ABSOLUTE AUTO 11.31 K/mm3 (1.96-9.15); NEUTROPHILS PERCENT AUTO 84 % (41-73); Platelet Count 236 K/mm3 (150-400); RDW Coefficient Variation 15.1 % (11.7-14.2); RDW Standard Deviation 54.8 fL (35.1-46.3); Red Blood Cell Count 3.16 M/mm3 (4.30-5.90); White Blood Cell Count 13.49 K/mm3 (4.00-11.30)
[2019-09-08 06:56] LABS: Anion Gap 6 mmol/L (6-16); Blood Urea Nitrogen 19 mg/dL (8-24); Bun/Creatinine Ratio 19.5 (12.0-20.0); CO2, Blood 36 mmol/L (21-32); Calcium, Blood 9.3 mg/dL (8.5-10.1); Chloride, Blood 89 mmol/L (98-108); Creatinine, Blood 0.97 mg/dL (0.60-1.20); Glomerular Filtration Rate >60 (60-); Glucose, Blood 168 mg/dL (70-99); Potassium, Blood 4.1 mmol/L (3.5-5.5); Sodium, Blood 131 mmol/L (136-145)
--- NOTE | 2019-09-08 15:24 | NUR ---
HE DISCHARGED AMA AT 1512 TODAY WITH HIS SON AND HIS PORTABLE O2 TANK. HE IS A&O AND PLEASANT. HE TOLD ME THE FIRST TIME I INTERACTED WITH HIM THIS MORNING THAT HE WAS LEAVING TODAY WITH OR WITHOUT A DISCHARGE ORDER. HE PLANNED ON BEING TRANSPORTED BY [facility] THAT WAS SET UP YESTERDAY FOR TODAY. I ASKED HIM ABOUT HIS PORTABLE O2 TANK. EVENTUALLY HE SAID HIS SON COULD PROBABLY BRING IT IN. HE ALSO REALIZED THE [facility] WOULD NOT WORK BECAUSE THE OCCUP THERAPIST WOULD NOT HELP HIM GET INTO HIS W/C AND SETTLED IN THE HOUSE. HE NEEDED HIS SON FOR THAT BECAUSE HIS DAUGHTER WON'T BE HOME FROM WORK UNTIL ABOUT 7 PM. ROUNDED ABOUT 1330. SHE FELT SHE PROBABLY COULD NOT DISCHARGE HIM YET BUT ORDERED MORE LABS AND WOULD CHECK BACK. ONE LAB NEGATIVE, BNP ELEVATED, AND THE RESP.PANEL TEST WAS REFUSED. HE SAID HE HAS HAD 2 OF THOSE IN THE PAST MONTH. AGREED TO AMA RELEASE BUT NOT A DISCHARGE. SHE WENT BACK AND TOLD HIM IN FRON OF HIS SON WHY SHE CANNOT IN GOOD CONSCIOUS DISCHARGE HIM YET. HE DID NOT CHANGE HIS MIND. ESTEBAN AND REGINA HANNAH. HIS SON WHEELED HIM OUT.
== END 2019-09-08 15:10 | disposition left against medical advice (07) | DRG 189 ==
LOC: ER 15:25 → MEDS 15:26
PROVIDERS: Emergency Medicine; Internal Medicine; Physician Assistant; ADMIT Family Medicine
DX: J96.21 Acute and chronic respiratory failure with hypoxia (principal); J44.0 Chronic obstructive pulmonary disease with (acute) lower respiratory infection; L03.116 Cellulitis of left lower limb; L03.115 Cellulitis of right lower limb; E87.1 Hypo-osmolality and hyponatremia; E66.2 Morbid (severe) obesity with alveolar hypoventilation; I50.32 Chronic diastolic (congestive) heart failure; G47.33 Obstructive sleep apnea (adult) (pediatric); N40.0 Benign prostatic hyperplasia without lower urinary tract symptoms; M10.9 Gout, unspecified; I11.0 Hypertensive heart disease with heart failure; E11.9 Type 2 diabetes mellitus without complications; D63.1 Anemia in chronic kidney disease; I27.20 Pulmonary hypertension, unspecified; F17.210 Nicotine dependence, cigarettes, uncomplicated; Z91.14 Patient's other noncompliance with medication regimen; Z99.81 Dependence on supplemental oxygen; Z79.82 Long term (current) use of aspirin; Z68.39 Body mass index [BMI] 39.0-39.9, adult
CPT/HCPCS: 36415; 71046; 71260; 80048; 80053; 82803; 83880; 84145; 84484; 85025; 85379; 93005; 93010; 93970; 94640; 94644; 94760; 96374; 96375; 99285-25; A9270; J0690; J1650; J1940; J2930; J7512; Q9967